=== PATIENT | female | born 1975 | race African-American/Black ===

== ENCOUNTER 2020-12-15 08:11 | Outpatient (REF) | payer OTHER, SELFPAY ==
--- NOTE | ~2020-12-15 | MM_ITS ---
EXAMINATION: MM SCREENING DIGITAL BREAST TOMOSYNTHESIS, BILATERAL CLINICAL INFORMATION: Screening. Asymptomatic. Age 45. No prior breast imaging. Family history breast cancer, sister. The lifetime risk of breast cancer based on the Tyrer-Cuzick Model is 14%. COMPARISON: None (current study represents initial baseline exam). TECHNIQUE: Digital breast tomosynthesis is performed in both the craniocaudal and mediolateral oblique views along with computer-aided detection (CAD). Synthesized 2D images are generated from the tomosynthesis. FINDINGS: There are scattered areas of fibroglandular density (ACR BI-RADS breast composition Category b). There are no significant masses, abnormal calcifications, or other abnormalities. The axilla and skin contours are unremarkable. MM/MM tomosynthesis screening BI IMPRESSION: No mammographic evidence of malignancy. ASSESSMENT: BI-RADS 1: Negative RECOMMENDATION: Routine annual mammography screening. This patient's information was entered into a reminder system with a target due date for their next mammogram.
== END 2020-12-15 08:12 | disposition home or self-care (01) ==
LOC: HO.MAMMO 08:11
PROVIDERS: Visit Provider Internal Medicine
DX: Z12.31 Encounter for screening mammogram for malignant neoplasm of breast (principal)
CPT/HCPCS: 77063; 77067

== ENCOUNTER 2020-12-20 09:07 | Outpatient (REF) | payer OTHER, SELFPAY ==
--- NOTE | ~2020-12-20 | XR_ITS ---
EXAMINATION: XR CHEST CLINICAL INFORMATION: Chest pain COMPARISON: None TECHNIQUE: 2 views of the chest were obtained. FINDINGS: No significant abnormality is noted involving the heart, lungs, mediastinum, bony thorax or soft tissues. XR/XR chest 2V IMPRESSION: Unremarkable chest examination.
[2020-12-20 09:59] LABS: Glucose Urine UA NEG (NEG); Leukocyte Esterase Urine NEG (NEG); Nitrite Urine NEG (NEG); Specific Gravity - Urine >= 1.030 (1.005-1.025); Urine Blood TRACE (NEG); Urine Ketones NEG (NEG); Urine Protein NEG (NEG-TRACE)
[2020-12-20 10:04] LABS: Appearance Urine HAZY; Color Urine YELLOW
[2020-12-20 10:09] LABS: Hematocrit 40.6 % (37-47); Hemoglobin 13.1 g/dl (12.0-16.0); Mean Corpuscular HGB Conc 32.3 g/dl (31.0-35.0); Mean Corpuscular Hemoglobin 27.4 pg (27.0-33.0); Mean Corpuscular Volume 84.9 fL (80-98); Mean Platelet Volume 12.4 fL (9.4-12.3); Platelet Count 214 X10*3/uL (160-400); Red Blood Count 4.78 X10*6/uL (4.20-5.50); Red Cell Distribution Width 13.2 % (11.0-16.0)
[2020-12-20 10:27] LABS: Alanine Aminotransferase 14 U/L (0-31); Albumin Level 4.6 g/dL (3.5-5.0); Alkaline Phosphatase 57 U/L (39-117); Anion Gap 11 (12-20); Aspartate Amino Transferase 15 U/L (5-31); Bilirubin Direct 0.2 mg/dL (0.0-0.5); Bilirubin Total 0.5 mg/dL (0.0-1.0); Blood Urea Nitrogen 10 mg/dL (9-16); Carbon Dioxide 29 mmol/L (22-29); Chloride 107 mmol/L (96-108); Cholesterol 206 mg/dL; Estimated Glomerular Filt Rate > 60; Glucose Random 85 mg/dL (60-115); HDL Cholesterol 61 mg/dL; LDL Cholesterol Calculated 132 mg/dl; Potassium 4.1 mmol/L (3.3-5.1); Sodium 143 mmol/L (135-145); Total Protein 6.9 g/dL (6.5-8.0); Triglycerides 66 mg/dL
[2020-12-20 10:47] LABS: Thyroid Stimulating Hormone 0.71 uIU/mL (0.32-4.0)
[2020-12-20 10:52] LABS: Bacteria Urine 1+ /LPF; Mucus Urine TRACE /LPF; RBC Urine 0-2 /HPF (0); Squamous Epithelial Cell Urine 1+ /LPF; WBC Urine 0-2 /HPF (0-4)
[2020-12-25 11:21] LABS: Vitamin D 25-OH, D2 <4 ng/mL; Vitamin D 25-OH, D3 6 ng/mL; Vitamin D 25-OH, Total 6 ng/mL (30-100)
== END 2020-12-20 09:08 | disposition home or self-care (01) ==
LOC: HO.LAB 09:07
PROVIDERS: PCP Internal Medicine; Visit Provider Internal Medicine
DX: R07.9 Chest pain, unspecified (principal)
CPT/HCPCS: 36415; 71046; 80048; 80061; 80076; 81001; 81003; 82306; 84443; 85027

== ENCOUNTER 2021-01-27 14:18 | Emergency (ER) | payer OTHER, SELFPAY ==
[2021-01-27 14:19] VITALS: BP 158/90; PULSE 99; RESP 16; TEMP 36.7; BMI 21.0
--- NOTE | 2021-01-27 15:51 | ECG_ITS ---
Test Reason : HEADACHE Blood Pressure : / mmHG Vent. Rate : 062 BPM Atrial Rate : 062 BPM P-R Int : 120 ms QRS Dur : 078 ms QT Int : 416 ms P-R-T Axes : 025 046 057 degrees QTc Int : 422 ms Normal sinus rhythm Normal ECG When compared with ECG of 08-JAN-2014 12:33, No significant change was found Referred By: Nataly Greco Electronically Signed By:Rupesh Arias
--- NOTE | 2021-01-27 16:08 | ED.GENADULT ---
HPI - General Adult General Chief complaint: General Medical Stated complaint: headache,dizzyness, blurred vision Time Seen by Provider: 01/27/21 15:24 Source: patient Mode of arrival: ambulatory Limitations: no limitations History of Present Illness HPI narrative: 45 yo female with past medical history of anxiety here with complaints of right sided [place], right eye blurry vision, nausea, dizziness since 4pm yesterday. No neck pain, back pain, weakness, numbness/tingling. No h/o migraines. Has not tried any OTC medications. Also c/o intermittent chest tightness for months seen by PCP and thought to be anxiety, has prn ativan which helps symptoms. Also c/o back pain, abdominal cramping, generalized malaise, NORMAN/wheezing s/p receiving J&J vaccine 7 days ago. Related Data Previous Rx's Medication Instructions Recorded clonazepam 0.5 mg tablet 0.5 mg PO DAILY PRN #15 tab 01/03/21 cholecalciferol (vitamin D3) 1,250 1,250 mcg PO QWEEK #14 cap 01/04/21 mcg (50,000 unit) capsule [id number]-klerpqcuvpqud-rwty 1 cap PO Q6H PRN #10 cap 01/27/21 [Fioricet] Allergies Allergy/AdvReac Type Severity Reaction Status Date / Time No Known Allergies Allergy Verified 01/21/21 14:29 [No Known Allergies*] Review of Systems Review of Systems: Yes all other systems are reviewed and are negative Constitutional: Constitutional: Reports no additional constitutional complaints, Denies body ache(s), Denies chills, Denies fever(s), Reports headache(s) and Denies weakness Eyes: Eyes: Reports no additional eye complaints, Reports blurry vision, Denies change in vision and Reports photophobia ENT: Reports system reviewed and no additional complaints, except as documented, Denies dizziness, Reports headache(s), Denies nasal congestion, Denies nasal discharge and Denies neck pain Cardiovascular: Cardiovascular: Reports no additional cardiovascular complaints, Reports chest pain, Denies leg edema, Denies dyspnea and Reports dyspnea on exertion Respiratory: Respiratory: Reports no additional respiratory complaints, Denies cough, Denies dyspnea and Reports dyspnea on exertion Gastrointestinal: Gastrointestinal: Reports no additional gastrointestinal complaints, Reports abdominal pain, Denies diarrhea, Denies nausea and Denies vomiting Genitourinary: Genitourinary: Reports no additional female genitourinary complaints and Denies urinary incontinence Musculoskeletal: Musculoskeletal: Reports no additional musculoskeletal complaints, Reports back pain, Denies arthralgias, Denies joint swelling, Denies neck pain, Denies numbness and Denies tingling Integumentary/Breasts: Skin/Breast: Reports system reviewed and no additional complaints, except as docu and Denies rash Neurologic: Reports system reviewed and no additional complaints, except as documented, Denies Abnormal speech present, Denies dizziness, Reports headache(s), Denies numbness, Denies tingling and Denies weakness PMFSH Past Medical History Attestation statement: The following information was validated with the patient. Source: old records reviewed and nursing notes reviewed Medical History Chest pain Surgical History History of tonsillectomy Family History Family History Father No problems noted. Mother No problems noted. Social History Social History Alcohol intake: current Alcohol intake frequency: holidays/special occasions only Smoking Status: Former smoker Tobacco Type: Cigarette Advance Directives: Yes Advance Directives Information Provided: No Advance Directives on File: No Physical Exam Vital Signs: Vital Signs: Last Vital Signs Temp 98.0 F 01/27/21 14:19 Pulse 78 01/27/21 20:08 Resp 13 01/27/21 20:08 BP 127/52 L 01/27/21 20:08 Body Mass Index 21.0 Const: General: cooperative, healthy appearing, comfortable and anxious Orientation/consciousness: patient oriented x3 Limitations: no limitations HENMT: Head: Yes normal to inspection Ears: hearing grossly normal bilaterally, TM's normal bilaterally, TM normal on the right and TM normal on the left General nose exam: Normal external nose present Face and sinus: Yes normal facial exam Mouth: Normal oral and palatal mucosa present Throat: Yes posterior oropharynx normal and Yes tonsils normal Eyes: Other: IOP right 20, IOP left 18 General: appearance normal, both eyes and all related structures Alignment and Position: alignment normal Periorbital: periorbital findings normal Eyelids: Yes eyelids normal Conjunctivae: conjunctivae normal Corneas: corneas normal Pupils: Equal, round and reactive pupils present EOM: EOMs intact bilaterally Direct Ophthalmoscopy: normal light reflex, no papilledema, fundi normal bilaterally, anterior chamber normal and photophobia Neck: Neck: Yes normal visual inspection, Yes full ROM, Yes no lymphadenopathy and Yes no meningeal signs Chest: Chest palpation & inspection: normal palpation of entire chest wall (central chest tender to palp) Resp: Effort & Inspection: normal respiratory effort Auscultation: clear to auscultation bilaterally Cardio: Rate: regular rate Rhythm: regular rhythm Peripheral pulses: Peripheral pulses 2+ throughout GI: Inspection: Yes normal to inspection Palpation (GI): Soft to palpation and nontender Auscultation: normal bowel sounds Back/Spine/Pelvis: Thoracic/Lumbar Spine: thoracic and lumbar spine normal to inspection Skin: General skin exam: no rashes or lesions noted Neuro: General: patient oriented x3, no meningeal signs, no focal motor deficits and normal sensation to monofilament Cranial nerves: Yes CN's II-XII intact bilaterally, Yes Equal, round and reactive pupils present, Yes Bilaterally intact EOM present, Yes Nystagmus not present, Yes Normal facial strength present and Yes Midline tongue present Cognition (Neuro): normal cognition Speech: No Abnormal speech present Gait exam (Neuro): Normal gait present Motor exam (neuro): 5/5 motor strength present throughout Sensory Exam: Normal double simultaneous stimulation for sensation Coordination: ljitnu-wt-[id number] test normal and inzi-gn-cybo test normal Extrem: General: Yes normal to inspection, Yes no pedal edema and Yes no calf tenderness Course Course Course Narrative: 45 yo female here with right sided [place], photophobia, blurry vision, nausea since 4pm yesterday. Normal neuro exam with exception of some blurry vision from right eye. Likely migraine. Will need IV for NSB, reglan, benadryl, visual acuity. If no improvement will need imaging. Also c/o constellation of symptoms s/p receiving J&J vaccine 7 days ago such as chest tightness, NORMAN, wheezing, back pain, abdominal pain. No focal findings on exam. Will check labs, EKG. 1800-Labs are unremarkable. EKG shows no ischemic changes. [place] and vision improving. Will give second L NS, fiorcet and re-assess. 1999-ALL symptoms resolved and patient tells me her vision is back to normal and she is feeling well. Likely migraine. Additionally, ?side effects from vaccine or anxiety. Patient agrees she has been very anxious after watching the news about potential side effects from the J&J vaccines. Reviewed worrisome signs/symptoms with patient and when to return to the ED. Comfortable with discharge home. Medical Decision Making MDM Narrative Medical decision making narrative: Less likely SAH with gradual onset, improving symptoms here and no neurological deficits or findings. Less likely CVT with improving symptoms here, no focal deficits. Medical Records Medical records reviewed: Yes I reviewed the patient's medical records. Lab Data Lab results reviewed: Yes I reviewed the patient's lab results. Result diagrams: 01/27/21 16:15 01/27/21 16:15 Labs: Lab Results 01/27/21 01/27/21 01/27/21 Range/Units 16:15 16:15 17:07 WBC 8.0 (4.8-10.8) X10*3/uL RBC 4.84 (4.20-5.50) X10*6/uL Hgb 13.1 (12.0-16.0) g/dl Hct 40.1 (37-47) % MCV 82.9 (80-98) fL MCH 27.1 (27.0-33.0) pg MCHC 32.7 (31.0-35.0) g/dl RDW 13.1 (11.0-16.0) % Plt Count 252 (160-400) X10*3/uL MPV 11.6 (9.4-12.3) fL Immature Gran % (Auto) 0.3 (0.0-0.4) % Neut % (Auto) 62.5 (45-73) % Lymph % (Auto) 29.6 (20-40) % [place] % (Auto) 5.7 (2-11) % Eos % (Auto) 1.3 (0-4) % Baso % (Auto) 0.6 (0-2) % Lymph # (Auto) 2.4 (1.2-4.9) X10*3/uL [place] # (Auto) 0.5 (0.1-1.2) X10*3/uL Eos # (Auto) 0.1 (0.0-0.4) X10*3/uL Baso # (Auto) 0.1 (0.0-0.2) X10*3/uL Abs Immat Gran (auto) 0.02 (0.00-0.03) X10*3/uL Absolute Neuts (auto) 5.0 (2.0-8.3) X10*3/uL Absolute Nucleated RBC 0.000 (0.0-0.012) X10*3/uL Nucleated RBC % (auto) 0.0 (0.0-0.2) /100WBC Sodium 139 (135-145) mmol/L Potassium 3.9 (3.3-5.1) mmol/L Chloride 105 (96-108) mmol/L Carbon Dioxide 24 (22-29) mmol/L Anion Gap 14 (12-20) BUN 9 (9-16) mg/dL Creatinine 0.69 (0.5-1.4) mg/dL Estim Creat Clear Calc 83.1 Estimated GFR > 60 Random Glucose 86 (60-115) mg/dL Calcium 9.0 (8.4-10.2) mg/dL Magnesium 2.2 (1.6-2.6) mg/dL Total Bilirubin 0.7 (0.0-1.0) mg/dL Direct Bilirubin 0.3 (0.0-0.5) mg/dL AST 15 (5-31) U/L ALT 17 (0-31) U/L Alkaline Phosphatase 62 (39-117) U/L Total Protein 7.1 (6.5-8.0) g/dL Albumin 4.6 (3.5-5.0) g/dL Urine Color YELLOW Urine Appearance CLEAR Urine pH 6.0 (5.0-8.0) Ur Specific [place] 1.015 (1.005-1.025) Urine Protein NEG (NEG-TRACE) MG/DL Urine Glucose (UA) NEG (NEG) MG/DL Urine Ketones 15 (NEG) MG/DL Urine Blood NEG (NEG) Urine Nitrite NEG (NEG) Ur Leukocyte Esterase NEG (NEG) Urine Test (NEGATIVE) 01/27/21 Range/Units 17:07 WBC (4.8-10.8) X10*3/uL RBC (4.20-5.50) X10*6/uL Hgb (12.0-16.0) g/dl Hct (37-47) % MCV (80-98) fL MCH (27.0-33.0) pg MCHC (31.0-35.0) g/dl RDW (11.0-16.0) % Plt Count (160-400) X10*3/uL MPV (9.4-12.3) fL Immature Gran % (Auto) (0.0-0.4) % Neut % (Auto) (45-73) % Lymph % (Auto) (20-40) % [place] % (Auto) (2-11) % Eos % (Auto) (0-4) % Baso % (Auto) (0-2) % Lymph # (Auto) (1.2-4.9) X10*3/uL [place] # (Auto) (0.1-1.2) X10*3/uL Eos # (Auto) (0.0-0.4) X10*3/uL Baso # (Auto) (0.0-0.2) X10*3/uL Abs Immat Gran (auto) (0.00-0.03) X10*3/uL Absolute Neuts (auto) (2.0-8.3) X10*3/uL Absolute Nucleated RBC (0.0-0.012) X10*3/uL Nucleated RBC % (auto) (0.0-0.2) /100WBC Sodium (135-145) mmol/L Potassium (3.3-5.1) mmol/L Chloride (96-108) mmol/L Carbon Dioxide (22-29) mmol/L Anion Gap (12-20) BUN (9-16) mg/dL Creatinine (0.5-1.4) mg/dL Estim Creat Clear Calc Estimated GFR Random Glucose (60-115) mg/dL Calcium (8.4-10.2) mg/dL Magnesium (1.6-2.6) mg/dL Total Bilirubin (0.0-1.0) mg/dL Direct Bilirubin (0.0-0.5) mg/dL AST (5-31) U/L ALT (0-31) U/L Alkaline Phosphatase (39-117) U/L Total Protein (6.5-8.0) g/dL Albumin (3.5-5.0) g/dL Urine Color Urine Appearance Urine pH (5.0-8.0) Ur Specific [place] (1.005-1.025) Urine Protein (NEG-TRACE) MG/DL Urine Glucose (UA) (NEG) MG/DL Urine Ketones (NEG) MG/DL Urine Blood (NEG) Urine Nitrite (NEG) Ur Leukocyte Esterase (NEG) Urine Test NEGATIVE (NEGATIVE) ECG Data Attestation: I personally reviewed and interpreted this ECG as follows: Interpretation: NSR with rate 62, normal pr, normal qrs, normal qtc Discharge Plan Discharge Clinical Impression: Migraine, Chest pain Patient Disposition: Home, Self-Care Instructions: Migraine Headache (ED), Chest Wall Pain (ED) Additional Instructions: Avoid migraine triggers (look up foods on internet). drink plenty of water and get plenty of rest Prescriptions: New tcthngntit-cblvdotwyymhu-kusc [Fioricet] 50-300-40 mg capsule 1 cap PO Q6H PRN (Reason: pain) Qty: 10 RF: 0 No Action cholecalciferol (vitamin D3) 1,250 mcg (50,000 unit) capsule 1,250 mcg PO QWEEK Qty: 14 RF: 1 clonazepam [Klonopin] 0.5 mg tablet 0.5 mg PO DAILY PRN (Reason: anxiety) Qty: 15 RF: 0 Referrals: Umer Holland MD [Primary Care Provider] - 2 days
[2021-01-27 16:23] LABS: MANUAL DIFF FLAG NO
[2021-01-27 16:25] LABS: Basophils Absolute Auto 0.1 X10*3/uL (0.0-0.2); Basophils Percent Auto 0.6 % (0-2); Eosinophils Absolute Auto 0.1 X10*3/uL (0.0-0.4); Eosinophils Percent Auto 1.3 % (0-4); Hematocrit 40.1 % (37-47); Hemoglobin 13.1 g/dl (12.0-16.0); Imm Gran Abs Auto 0.02 X10*3/uL (0.00-0.03); Imm Gran Pct Auto 0.3 % (0.0-0.4); Lymphocytes Absolute Auto 2.4 X10*3/uL (1.2-4.9); Lymphocytes Percent Auto 29.6 % (20-40); Mean Corpuscular HGB Conc 32.7 g/dl (31.0-35.0); Mean Corpuscular Hemoglobin 27.1 pg (27.0-33.0); Mean Corpuscular Volume 82.9 fL (80-98); Mean Platelet Volume 11.6 fL (9.4-12.3); Monocytes Absolute Auto 0.5 X10*3/uL (0.1-1.2); Monocytes Percent Auto 5.7 % (2-11); Neutrophils Percent Auto 62.5 % (45-73); Platelet Count 252 X10*3/uL (160-400); Red Blood Count 4.84 X10*6/uL (4.20-5.50); Red Cell Distribution Width 13.1 % (11.0-16.0)
[2021-01-27 16:51] LABS: Alanine Aminotransferase 17 U/L (0-31); Albumin Level 4.6 g/dL (3.5-5.0); Alkaline Phosphatase 62 U/L (39-117); Anion Gap 14 (12-20); Aspartate Amino Transferase 15 U/L (5-31); Bilirubin Direct 0.3 mg/dL (0.0-0.5); Bilirubin Total 0.7 mg/dL (0.0-1.0); Blood Urea Nitrogen 9 mg/dL (9-16); Carbon Dioxide 24 mmol/L (22-29); Chloride 105 mmol/L (96-108); Creatinine Clr Calc Pharmacy 83.1; Estimated Glomerular Filt Rate > 60; Glucose Random 86 mg/dL (60-115); Magnesium 2.2 mg/dL (1.6-2.6); Potassium 3.9 mmol/L (3.3-5.1); Sodium 139 mmol/L (135-145); Total Protein 7.1 g/dL (6.5-8.0)
[2021-01-27] MEDS: Metoclopramide HCl 10 MG/2 ML VIAL IVPUSH (17:04)
[2021-01-27] MEDS: 0.9 % Sodium Chloride 1,000 ML 999 ML IV ×2 (17:04→18:08)
[2021-01-27] MEDS: diphenhydrAMINE HCL 50 MG/ML VIAL 25 MG IVPUSH (17:04)
--- NOTE | 2021-01-27 17:08 | PC.NURSE ---
Pt given benedryl, reglan, and ivf. Pt senthil anxious but verbal reassurance given with good effect.
[2021-01-27 17:33] LABS: Glucose Urine UA NEG (NEG); Leukocyte Esterase Urine NEG (NEG); Nitrite Urine NEG (NEG); Specific Gravity - Urine 1.015 (1.005-1.025); Urine Blood NEG (NEG); Urine Ketones 15 MG/DL (NEG); Urine Protein NEG (NEG-TRACE)
[2021-01-27 17:39] LABS: Appearance Urine CLEAR; Color Urine YELLOW
[2021-01-27 17:47] LABS: UPreg QC Valid YES; Urine Pregnancy NEGATIVE (NEGATIVE)
[2021-01-27 18:00] VITALS: BP 123/77; PULSE 71; RESP 16
[2021-01-27] MEDS: Butalb/Acetamin/Caff 50/325/40 TABLET 2 TAB PO (18:08)
--- NOTE | 2021-01-27 18:10 | PC.NURSE ---
Pt resting in bed with eyes closed.Additional IVF and medications given for headache.
[2021-01-27 20:08] VITALS: BP 127/52; PULSE 78; RESP 13
== END 2021-01-27 20:30 | disposition home or self-care (01) ==
PROVIDERS: Nurse Practitioner Family; Emergency Provider Emergency Medicine Emergency Medical Services; PCP Internal Medicine
DX: G43.909 Migraine, unspecified, not intractable, without status migrainosus (principal); R07.9 Chest pain, unspecified; F41.9 Anxiety disorder, unspecified; Z79.899 Other long term (current) drug therapy; Z87.891 Personal history of nicotine dependence
CPT/HCPCS: 36415; 80048; 80076; 81003; 81025; 83735; 85025; 93005; 96361; 96374; 96375; 99284; J1200; J2765

== ENCOUNTER 2021-02-09 09:34 | Outpatient (REF) | payer OTHER, SELFPAY ==
[2021-02-09 11:51] LABS: Glucose Urine UA NEG (NEG); Leukocyte Esterase Urine NEG (NEG); Nitrite Urine NEG (NEG); PH 5.5 (5.0-8.0); Specific Gravity - Urine >= 1.030 (1.005-1.025); Urine Blood NEG (NEG); Urine Ketones NEG (NEG); Urine Protein NEG (NEG-TRACE)
[2021-02-09 11:52] LABS: Appearance Urine CLEAR; Color Urine YELLOW
[2021-02-09 16:24] LABS: CT PCR NOT DETECTED (Not Detect.); NG PCR NOT DETECTED (Not Detect.)
[2021-02-10 07:59] LABS: Syphilis Screen Nonreactive (Nonreactive)
[2021-02-10 08:51] LABS: HBc Num1 0.02 S/CO (0.00-0.79); HIV AB/AG Nonreactive (Nonreactive); HIV Num 1 0.07 S/CO (0.00-0.99); Hepatitis B Core Antibody Nonreactive (Nonreactive)
[2021-02-10 08:59] LABS: ~HepC Num1 0.18 S/CO (0.00-0.79); ~Hepatitis C Antibody Nonreactive (Nonreactive)
[2021-02-14 15:17] LABS: HPV mRNA E6/E7 rflx Not Detected (Not Detected)
== END 2021-02-09 09:35 | disposition home or self-care (01) ==
LOC: HO.LAB 09:34
PROVIDERS: PCP Internal Medicine; Visit Provider Advanced Practice Midwife
DX: Z01.419 Encounter for gynecological examination (general) (routine) without abnormal findings (principal); Z11.51 Encounter for screening for human papillomavirus (HPV); R07.9 Chest pain, unspecified; Z20.2 Contact with and (suspected) exposure to infections with a predominantly sexual mode of transmission; Z80.3 Family history of malignant neoplasm of breast
CPT/HCPCS: 36415; 81003; 86704; 86780; 86803; 87389; 87491; 87591; 87624; 88142

== ENCOUNTER → 2021-03-28 13:04 | Outpatient (BNVA) | payer OTHER, SELFPAY | PROVIDERS: PCP Internal Medicine; Visit Provider Advanced Practice Midwife | DX: Z30.017 Encounter for initial prescription of implantable subdermal contraceptive (principal) | CPT/HCPCS: 11981; 81025 ==

== ENCOUNTER 2021-04-25 08:44 | Outpatient (REF) | payer OTHER, SELFPAY ==
[2021-04-25 11:05] LABS: HBc Num1 0.13 S/CO (0.00-0.79); Hepatitis B Core Antibody Nonreactive (Nonreactive)
[2021-04-25 11:06] LABS: HIV AB/AG Nonreactive (Nonreactive); HIV Num 1 0.14 S/CO (0.00-0.99); ~HepC Num1 0.19 S/CO (0.00-0.79); ~Hepatitis C Antibody Nonreactive (Nonreactive)
[2021-04-26 06:42] LABS: Syphilis Screen Nonreactive (Nonreactive)
== END 2021-04-25 08:45 | disposition home or self-care (01) ==
LOC: HO.LAB 08:44
PROVIDERS: PCP Internal Medicine; Visit Provider Advanced Practice Midwife
DX: N93.9 Abnormal uterine and vaginal bleeding, unspecified (principal); Z20.2 Contact with and (suspected) exposure to infections with a predominantly sexual mode of transmission; Z30.46 Encounter for surveillance of implantable subdermal contraceptive
CPT/HCPCS: 36415; 86704; 86780; 86803; 87389; 99212

== ENCOUNTER 2021-12-29 08:45 | Outpatient (REF) | payer OTHER, SELFPAY ==
--- NOTE | ~2021-12-29 | MM_ITS ---
EXAMINATION: MM SCREENING DIGITAL BREAST TOMOSYNTHESIS, BILATERAL CLINICAL INFORMATION: Screening. Asymptomatic. The lifetime risk of breast cancer based on the Tyrer-Cuzick Model is 14.2%. COMPARISON: Mammography: December 15, 2020 TECHNIQUE: Digital breast tomosynthesis is performed in both the craniocaudal and mediolateral oblique views along with computer-aided detection (CAD). Synthesized 2D images are generated from the tomosynthesis. FINDINGS: The breasts are heterogeneously dense, which may obscure small masses (ACR BI-RADS breast composition Category c). There are no significant masses, abnormal calcifications, or other abnormalities. MM/MM tomosynthesis screening BI IMPRESSION: There are no significant changes from prior study. ASSESSMENT: BI-RADS 1: Negative RECOMMENDATION: Routine annual mammography screening. This patient's information was entered into a reminder system with a target due date for their next mammogram.
== END 2021-12-29 08:46 | disposition home or self-care (01) ==
LOC: HO.MAMMO 08:45
PROVIDERS: PCP Internal Medicine; Visit Provider Internal Medicine
DX: Z12.31 Encounter for screening mammogram for malignant neoplasm of breast (principal)
CPT/HCPCS: 77063; 77067

== ENCOUNTER 2022-03-15 08:34 | Outpatient (REF) | payer OTHER, SELFPAY ==
[2022-03-15 14:34] LABS: CT PCR NOT DETECTED (Not Detect.); NG PCR NOT DETECTED (Not Detect.)
[2022-03-16 08:47] LABS: BV Int Neg Control Negative (Negative); BV Int Pos Control Positive (Positive)
== END 2022-03-15 08:35 | disposition home or self-care (01) ==
LOC: HO.LAB 08:34
PROVIDERS: Visit Provider Advanced Practice Midwife
DX: Z01.411 Encounter for gynecological examination (general) (routine) with abnormal findings (principal); N92.1 Excessive and frequent menstruation with irregular cycle; Z20.2 Contact with and (suspected) exposure to infections with a predominantly sexual mode of transmission; Z97.5 Presence of (intrauterine) contraceptive device
CPT/HCPCS: 87480; 87491; 87510; 87591; 87660

== ENCOUNTER 2023-02-13 09:52 | Outpatient (REF) | payer OTHER, SELFPAY ==
--- NOTE | ~2023-02-13 | MM_ITS ---
EXAMINATION: MM SCREENING DIGITAL BREAST TOMOSYNTHESIS, BILATERAL CLINICAL INFORMATION: Screening. Asymptomatic. The lifetime risk of breast cancer based on the Tyrer-Cuzick Model is 14.4%. COMPARISON: Mammography: 12/29/2021 and 12/15/2020. TECHNIQUE: Digital breast tomosynthesis is performed in both the craniocaudal and mediolateral oblique views along with computer-aided detection (CAD). Synthesized 2D images are generated from the tomosynthesis. FINDINGS: The breasts are extremely dense, which lowers the sensitivity of mammography (ACR BI-RADS breast composition Category d). There is a stable appearance of the left breast. About the medial aspect of the right breast on craniocaudal view approximately 4 cm from the nipple there is a partially circumscribed 8 x 6 mm density for which spot compression view is recommended. I do not definitely see a correlate on mediolateral oblique image however there is dense parenchyma seen in the superior aspect of the right breast where the density could be obscured. About the lateral aspect of the right breast on craniocaudal view there is a new-appearing density which may represent superimposed tissue lying approximately 5 cm from the nipple. Spot compression views of both regions are recommended. MM/MM tomosynthesis screening BI IMPRESSION: 2 right breast densities for further evaluation as described. ASSESSMENT: BI-RADS 0: Incomplete - Need Additional Imaging Evaluation RECOMMENDATION: 1. Additional views of the right breast. 2. Targeted ultrasound if warranted after review of the additional views. 3. Radiology department staff will contact the patient for additional imaging. This patient's information was entered into a reminder system with a target due date for their next mammogram.
[2023-02-13 10:58] LABS: Hematocrit 38.8 % (37.0-47.0); Hemoglobin 12.6 g/dl (12.0-16.0); Mean Corpuscular HGB Conc 32.5 g/dl (31.0-35.0); Mean Corpuscular Hemoglobin 27.4 pg (27.0-33.0); Mean Corpuscular Volume 84.3 fL (80.0-98.0); Mean Platelet Volume 11.4 fL (9.4-12.3); Platelet Count 247 X10*3/uL (160-400); Red Cell Distribution Width 13.2 % (11.0-16.0); White Blood Count 6.1 X10*3/uL (4.8-10.8)
[2023-02-13 11:59] LABS: Alanine Aminotransferase 24 U/L (0-31); Albumin Level 4.2 g/dL (3.5-5.0); Alkaline Phosphatase 57 U/L (39-117); Anion Gap 11 (12-20); Aspartate Amino Transferase 15 U/L (5-31); Bilirubin Direct 0.1 mg/dL (0.0-0.5); Bilirubin Total 0.5 mg/dL (0.0-1.0); Blood Urea Nitrogen 7 mg/dL (9-16); Calcium 9.2 mg/dL (8.4-10.2); Carbon Dioxide 28 mmol/L (22-29); Chloride 105 mmol/L (96-108); Cholesterol 231 mg/dL; Estimated Glomerular Filt Rate > 60; Glucose Random 82 mg/dL (60-115); HDL Cholesterol 56 mg/dL; LDL Cholesterol Calculated 151 mg/dl; Potassium 4.3 mmol/L (3.3-5.1); Sodium 140 mmol/L (135-145); Total Protein 6.4 g/dL (6.5-8.0); Triglycerides 124 mg/dL
[2023-02-13 12:22] LABS: Thyroid Stimulating Hormone 0.75 uIU/mL (0.32-4.0)
[2023-02-18 15:13] LABS: Vitamin D 25-OH, D2 <4 ng/mL; Vitamin D 25-OH, D3 34 ng/mL; Vitamin D 25-OH, Total 34 ng/mL (30-100)
== END 2023-02-13 09:53 | disposition home or self-care (01) ==
LOC: HO.MAMMO 09:52
PROVIDERS: PCP Internal Medicine; Visit Provider Internal Medicine
DX: Z00.00 Encounter for general adult medical examination without abnormal findings (principal); F41.1 Generalized anxiety disorder; Z12.31 Encounter for screening mammogram for malignant neoplasm of breast
CPT/HCPCS: 36415; 77063; 77067; 80048; 80061; 80076; 82306; 84443; 85027

== ENCOUNTER 2023-03-14 12:54 | Outpatient (REF) | payer OTHER, SELFPAY ==
--- NOTE | ~2023-03-14 | MM_ITS ---
EXAMINATION: MM DIAGNOSTIC DIGITAL BREAST TOMOSYNTHESIS, RIGHT US DIAGNOSTIC ULTRASOUND BREAST, RIGHT CLINICAL INFORMATION: Recall from screening for question of asymmetric densities anterior medial and anterior lateral right breast. COMPARISON: Prior mammography exams, including most recent 02/13/2023. TECHNIQUE: Digital breast tomosynthesis is performed. 2D images are generated from the tomosynthesis. The following views are obtained: Spot CC x2, standard ML. Ultrasound right breast is targeted to the medial breast 2:00 through 5:00 position and lateral breast 8:00 through 10:00 position, respectively. Grayscale imaging and color Doppler are performed without and with harmonics FINDINGS: The breasts are heterogeneously dense, which may obscure small masses (ACR BI-RADS breast composition Category c). The additional views show no mass or architectural abnormality. No developing density. Ultrasound demonstrates no solid mass or architectural abnormality. No focal duct ectasia. There is incidental simple cyst 3:00 position 5 cm from nipple measuring 6 x 3 mm. The lateral side also has a cyst mid outer breast 9:00 position measuring 7 x 4 mm. No peripheral or internal color flow. There is increased through-transmission of sound at real-time imaging. Results are discussed with the patient at time of visit. There is no suspicious finding on additional imaging. As a precaution, short interval follow-up right mammography will be requested to exclude remote possibility of an occult developing density. MM/MM tomosynthesis added views R IMPRESSION: -Additional views show no mammographic evidence of malignancy. -Small cysts under 1 cm medial breast and lateral breast. No solid mass or architectural abnormality. ASSESSMENT: BI-RADS 2: Benign RECOMMENDATION: Diagnostic right mammography in 6 months. This patient's information was entered into a reminder system with a target due date for their next mammogram.
== END 2023-03-14 12:55 | disposition home or self-care (01) ==
LOC: HO.MAMMO 12:54
PROVIDERS: PCP Internal Medicine; Visit Provider Internal Medicine
DX: R92.2 Inconclusive mammogram (principal)
CPT/HCPCS: 76642; 77061; 77065

== ENCOUNTER 2023-03-21 09:20 | Outpatient (REF) | payer OTHER, SELFPAY ==
[2023-03-21 15:26] LABS: CT PCR NOT DETECTED (Not Detect.); NG PCR NOT DETECTED (Not Detect.)
[2023-03-22 11:12] LABS: BV Int Neg Control Negative (Negative); BV Int Pos Control Positive (Positive)
== END 2023-03-21 09:21 | disposition home or self-care (01) ==
LOC: HO.LAB 09:20
PROVIDERS: PCP Internal Medicine; Visit Provider Advanced Practice Midwife
DX: N92.1 Excessive and frequent menstruation with irregular cycle (principal); Z97.5 Presence of (intrauterine) contraceptive device
CPT/HCPCS: 0353U; 87480; 87510; 87660

== ENCOUNTER 2023-03-21 09:47 | Outpatient (REF) | payer OTHER, SELFPAY ==
[2023-03-26 22:08] LABS: HPV mRNA E6/E7 rflx Not Detected (Not Detected)
== END 2023-03-21 09:48 | disposition home or self-care (01) ==
LOC: HO.LNP 09:47
PROVIDERS: Visit Provider Advanced Practice Midwife
DX: Z01.419 Encounter for gynecological examination (general) (routine) without abnormal findings (principal); N92.1 Excessive and frequent menstruation with irregular cycle; Z97.5 Presence of (intrauterine) contraceptive device
CPT/HCPCS: 87624; 88142

== ENCOUNTER 2023-03-28 12:54 | Outpatient (REF) | payer OTHER, SELFPAY ==
--- NOTE | ~2023-03-28 | US_ITS ---
EXAMINATION: US PELVIS COMPLETE CLINICAL INFORMATION: Extensive and frequent menstruation COMPARISON: None TECHNIQUE: Transabdominal and transvaginal imaging was performed. FINDINGS: The uterus is of normal size and echogenicity measuring 7.9 x 4.3 x 5.6 cm. A regular homogeneous endometrium is identified measuring 0.3 cm. Both ovaries are of appearance and echogenicity. The right measures 3.1 x 2.4 x 2.7 cm for a volume of 2.5 mL. The left measures 2.0 x 1.4 x 1.5 cm for a volume of 2.2 mL. There is no pelvic free fluid. US/US pelvic and transvaginal IMPRESSION: Unremarkable pelvic ultrasound.
== END 2023-03-28 12:55 | disposition home or self-care (01) ==
LOC: HO.US 12:54
PROVIDERS: Visit Provider Advanced Practice Midwife
DX: N92.1 Excessive and frequent menstruation with irregular cycle (principal); Z97.5 Presence of (intrauterine) contraceptive device
CPT/HCPCS: 76830; 76856

== ENCOUNTER 2023-04-26 09:57 | Outpatient (AMB) | payer OTHER, SELFPAY ==
--- NOTE | 2023-04-26 10:02 | A.OFFVIS_ITS ---
Intake Vital Signs 04/26/23 10:20 Height 5 ft 2 in Weight 120 lb BMI 21.9 BP 110/62 Intake Visit Reasons: US follow up/Nexplanon Removal 45 mins Intake Note: The patient agreed to use of a medical/surgery registered nurse during this encounter. Scribed for DAVION Russell by Shadia Guzman medical/surgery registered nurse, on 04/26/2023 at 10:[address] [employer] Foreman Required: No Information Interpreted: non-clinical & clinical Medical Data Analyst: Medical Data Analyst Present (Sarita) Allergies maple trees Allergy (Unknown, Uncoded 04/26/23 10:21) Unknown Post menopausal: No HPI HPI Comments History of Present Illness Details She presents to discuss test results secondary to irregular bleeding. Currently has Nexplanon for BC. She is also here to have it removed today. She desires to take a break from hormones and not start a new BC today. Not currently sexually active. 03/28/23 IMPRESSION: Unremarkable pelvic ultrasound. PFS Medical History Chest pain COVID-19 vaccine administered Ectopic FH: breast cancer in first degree relative Migraine with aura PTSD (post-traumatic stress disorder) Surgical History H/O unilateral salpingectomy History of loop electrical excision procedure (LEEP) History of tonsillectomy Family History Father No problems noted. Mother No problems noted. Sister Breast cancer, Onset Age: 38 Social History Housing: House Alcohol intake: current Alcohol intake frequency: holidays/special occasions only Patient Tobacco Use Status: Former Tobacco user e-Cigarette/Vaping Use: Never Used Second Hand Smoke Exposure: No service: No Current occupational status: employed Current occupation: Medical billing Sexual orientation: Straight/Heterosexual Gender identity: Female Cognitive needs: No Hearing needs: No Vision needs: Yes (glasses) Female Reproductive History Menstrual Age of Menarche: 15 control method: implanted Date of last pap smear: 03/25/23 (negative) Review of Systems Const All systems reviewed & are unremarkable except as noted in HPI and below Reports abnormal menses Physical Exam Vital Signs: Last Vital Signs BP 110/62 04/26/23 10:20 BMI result Body Mass Index 21.9 Const General: cooperative, no acute distress, well developed and alert Extrem General: Yes normal to inspection Left upper extremity: normal to inspection and elbow/forearm (Nexplanon removed successfully) Office Procedures Contraception Insert/Removal Details Details: She was counseled and now consented as to the risks and benefits including: bleeding, pain, scarring, nerve damage and infection. Patient agrees to proceed with the procedure. The patient was placed in a supine position with her non dominant left hand resting under her head. The insertion site was located: 8-10cm from the medial epicondyle notch of the humerus, posterior to the sulcus, between the triceps and biceps muscle. The area of the previous implant was identified and the distal tip located. This area was cleansed with an alcohol prep and 3 ml of 1% Lidocaine on a 25 gauge needle and syringe was utilized for adequate anesthesia to the insertion site. After ascertaining adequate anesthesia, the area was prepped with Betadine solution. The skin over the distal tip was incised with a #11 blade scalpel and the capsule was located and entered freeing the implant from the canal. The implant was removed with a gentle tug using a mosquito clamp and removed intact. Direct pressure was applied to the insertion site for hemostasis, minimal bleeding was observed. Steri strips, Tegaderm covering, gauze pads, and Sary wrap dressing were secured with paper tape. The patient tolerated the procedure well and left the office in good condition. She was instructed to go to ER if she experiences any fever >100.4, flu-like symptoms, increased pain, swelling, redness or pus drainage from the insertion site. Instructed to leave steri-strips in place for 3-5 days and gauze and bandage for 24 hours to help prevent infection. 74836 - Removal Results AMB Test Urine AMB Test Urine Negative Last Edit by Sarita Pickett CMA on 10:25 Results Reviewed Results Reviewed: Laboratory Last Values [facility] Negative 04/26/23 10:25 Assessment & Plan Assessment & Plan (1) Nexplanon removal: Code(s): Z30.46 - Encounter for surveillance of implantable subdermal contraceptive Plan: Nexplanon removed without complication today. See procedure note. She can take Tylenol or ibuprofen for pain prn. Offered BC; she declines today. Reviewed normal spacing of menses, contact office with any bleeding that are less than 3 weeks apart or heavy or prolonged bleeding. Will monitor bleeding and contact office with any concerns. (2) Breakthrough bleeding on Nexplanon: Code(s): N92.1 - Excessive and frequent menstruation with irregular cycle; Z97.5 - Presence of (intrauterine) contraceptive device (3) Encounter to discuss test results: Code(s): Z71.2 - Person consulting for explanation of examination or test findings Orders: Orders AMB HCG Urine Test Today Z32.02 - Encounter for test, result negative Coding Level of Care Code Procedure Only Diagnoses Nexplanon removal Z30.46 Breakthrough bleeding on Nexplanon N92.1; Z97.5 Encounter to discuss test results Z71.2 CPT Codes Details - Contraception: 50675 - Removal ([id number])
[2023-04-26 10:20] VITALS: BP 110/62; BMI 21.9
== END 2023-04-26 11:30 | disposition home or self-care (01) ==
LOC: HO.HWS 09:57
PROVIDERS: PCP Internal Medicine; Visit Provider Advanced Practice Midwife
DX: Z32.02 Encounter for pregnancy test, result negative (principal); Z30.46 Encounter for surveillance of implantable subdermal contraceptive
CPT/HCPCS: 11982

== ENCOUNTER → 2023-04-26 09:57 | Outpatient (BNVA) | payer OTHER, SELFPAY | PROVIDERS: PCP Internal Medicine; Visit Provider Advanced Practice Midwife | DX: Z30.46 Encounter for surveillance of implantable subdermal contraceptive (principal); Z71.2 Person consulting for explanation of examination or test findings; N92.1 Excessive and frequent menstruation with irregular cycle | CPT/HCPCS: 11982; 81025 ==

== ENCOUNTER 2023-08-01 08:14 | Outpatient (AMB) | payer OTHER, SELFPAY ==
[2023-08-01 08:22] VITALS: BP 122/78; PULSE 64; O2SAT 98; BMI 21.9
--- NOTE | 2023-08-01 08:22 | MHC.PC.OV ---
Vital Signs 08/01/23 08:22 Height 5 ft 2 in Weight 120 lb BMI 21.9 BP 122/78 Blood Pressure Location Lt brachial Position Sitting Pulse 64 Pulse Source Pulse Oximeter Pulse Oximetry (%) 98 Oxygen Delivery Method Room Air Intake Visit Reasons: 6mth f/u Allergies maple trees Allergy (Unknown, Uncoded 08/01/23 08:58) Unknown Medication List - Last Reconciled 08/01/23 by Umer Holland MD citalopram (Celexa) 20 mg (2 x 10 mg) PO DAILY fluticasone propionate 50 mcg/actuation 1 intranasal DAILY lorazepam 0.5 mg PO BEDTIME PRN 30 days Tobacco use date assessed: 01/24/23 Dental Screening Dental Screen Date: 08/01/23 Did you have a dental visit in the last 12 months?: Yes Did you have a dental problem in the last 6 months where you did not have access to dental care?: No Was dental information given to patient?: Patient has dentist HPI 6mth f/u HPI Details 48-year-old female presents to the office to discuss her chronic medical conditions. Patient is doing well regarding her anxiety. She is able to work and do her activities of daily living. However she still feels low energy at times and is not able to go to the gym due to anxiety. She is compliant with her medications and not using lorazepam that often. She was informed last visit that her cholesterol levels are high. Patient is very reluctant to start statins. She would like to try the diet and exercise again. She is requesting a fasting blood work to get baseline lipid level. [facility] Medical History Pure hypercholesterolemia, unspecified FH: breast cancer in first degree relative COVID-19 vaccine administered Migraine with aura PTSD (post-traumatic stress disorder) Ectopic Chest pain Surgical History H/O unilateral salpingectomy History of loop electrical excision procedure (LEEP) History of tonsillectomy Family History Father No problems noted. Mother No problems noted. Sister Breast cancer, Onset Age: 38 Social History Housing: House Alcohol intake: current Alcohol intake frequency: holidays/special occasions only Patient Tobacco Use Status: Former Tobacco user Tobacco use type: Cigarette e-Cigarette/Vaping Use: Never Used Second Hand Smoke Exposure: No service: No Current occupational status: employed Current occupation: Medical billing Sexual orientation: Straight/Heterosexual Gender identity: Female Cognitive needs: No Hearing needs: No Vision needs: Yes (glasses) Female Reproductive History Menstrual Age of Menarche: 15 Questionnaire PHQ-9 Over the last 2 weeks, how often have you been bothered by any of the following problems? 1. Little interest or pleasure in doing things: several days 2. Feeling down, depressed, or hopeless: more than half the days 3. Trouble falling or staying asleep, or sleeping too much: several days 4. Feeling tired or having little energy: several days 5. Poor appetite or overeating: several days 6. Feeling bad about yourself - or that you are a failure or have let yourself or your family down: not at all 7. Trouble concentrating on things, such as reading the newspaper or watching television: several days 8. Moving or speaking so slowly that other people could have noticed. Or the opposite - being so fidgety or restless that you have been moving around a lot more than usual: not at all 9. Thoughts that you would be better off or of hurting yourself in some way: not at all Total score: 7 Source: Developed by Drs. Rene Riggins, Matt Flood and colleagues, with an educational dannielle from [employer]. Thrive Questionnaire Date Thrive assessed: 01/24/23 AUDIT C Alcohol Use Questionnaire (AUDIT-C) 1. How often do you have a drink containing alcohol?: Monthly or less 2. How many drinks containing alcohol do you have on a typical day when you are drinking?: 1 or 2 Total Score: 1 PAUL-7 AMB Questionnaire PAUL-7 Date PAUL - 7 assessed: 01/24/23 Source: Developed by Drs. Rene Riggins, Matt Flood and colleagues, with an educational dannielle from [employer]. Physical exam (Primary Care) Vital Signs: Last Vital Signs Pulse 64 08/01/23 08:22 BP 122/78 08/01/23 08:22 Pulse Ox 98 08/01/23 08:22 Oxygen Delivery Method Room Air 08/01/23 08:22 Care Plan Goal for BP management: Blood pressure is in range. On no medications. BMI result Body Mass Index 21.9 Tobacco/Smoking Status: Tobacco use Status Tobacco use date assessed 01/24/23 08/01/23 08:25 Patient Tobacco Use Status Former Tobacco user 08/01/23 08:25 Tobacco use type Cigarette 08/01/23 08:25 e-Cigarette/Vaping Use Never Used 08/01/23 08:25 PHQ-9: PHQ-9 Score PHQ-9: Total score 7 08/01/23 08:25 Thrive Assessment: Date of Thrive Assessment Date Thrive assessed 01/24/23 08/01/23 08:25 Const General: cooperative and healthy appearing Nutritional Appearance: well nourished Orientation/consciousness: patient oriented x3 Limitations: no limitations HENMT Head: Yes normal to inspection Eyes General: appearance normal, both eyes and all related structures Neck Neck: Yes normal visual inspection Chest Chest palpation & inspection: normal palpation of entire chest wall Resp Effort & Inspection: normal respiratory effort Neuro General: patient oriented x3 Assessment and Plan Assessment & Plan (1) Pure hypercholesterolemia, unspecified: Code(s): E78.00 - Pure hypercholesterolemia, unspecified Plan: Fasting lipid levels have been ordered. Patient has been encouraged to try the diet and exercise route. Repeat lipid level in 3 months again. Patient is willing to try statins if there is no change in the numbers. (2) Generalized anxiety disorder: Code(s): F41.1 - Generalized anxiety disorder Plan: Suboptimal response to citalopram. Cognitive behavioral therapy added to the treatment. Patient was encouraged to meditate and exercise. Orders: Orders Lipid Panel Today E78.00 - Pure hypercholesterolemia, unspecified, F41.1 - Generalized anxiety disorder Coding Level of Care Code Est Pt Level 4 (68144) Diagnoses Pure hypercholesterolemia, unspecified E78.00 Generalized anxiety disorder F41.1
== END 2023-08-01 09:00 | disposition home or self-care (01) ==
PROVIDERS: Visit Provider Internal Medicine
DX: E78.00 Pure hypercholesterolemia, unspecified (principal); F41.1 Generalized anxiety disorder
CPT/HCPCS: 99214

== ENCOUNTER 2023-09-25 10:59 | Outpatient (REF) | payer OTHER, SELFPAY ==
--- NOTE | ~2023-09-25 | MM_ITS ---
EXAMINATION: MM DIAGNOSTIC DIGITAL BREAST TOMOSYNTHESIS, RIGHT CLINICAL INFORMATION: Follow-up stability of 2 one view asymmetric densities seen right CC view only, anterior medial and lateral. On prior imaging 03/14/2023 these appear to represent simple cysts. COMPARISON: Mammography: 03/14/2023, 02/13/2023, 12/29/2021, 12/15/2020. TECHNIQUE: Digital right breast tomosynthesis is performed in both the craniocaudal and mediolateral oblique views along with computer-aided detection (CAD). Synthesized 2D images are generated from the tomosynthesis. FINDINGS: The breasts are heterogeneously dense, which may obscure small masses (ACR BI-RADS breast composition Category c). Pituitary asymmetries seen on the CC view of the right breast, anterior one third, are stable to less conspicuous on the current exam. Previous ultrasound demonstrated these to represent cysts. There are no suspicious masses, suspicious grouped calcifications, or areas of architectural distortion. The parenchymal pattern is stable from prior exams. There are no skin or axillary changes. MM/MM tomosynthesis diagnostic RT IMPRESSION: There are no significant changes from prior study. Benign anterior asymmetries related to underlying cysts in the right breast. Recommend the patient return to routine annual screening. ASSESSMENT: BI-RADS BI-RADS 2 - Benign Findings RECOMMENDATION: 1 year F/U Results were provided to the patient at time of visit by the technologist. This patient's information was entered into a reminder system with a target due date for their next mammogram.
== END 2023-09-25 11:00 | disposition home or self-care (01) ==
LOC: HO.MAMMO 10:59
PROVIDERS: PCP Internal Medicine; Visit Provider Internal Medicine
DX: R92.2 Inconclusive mammogram (principal)
CPT/HCPCS: 77061; 77065

== ENCOUNTER → 2023-09-25 11:00 | Outpatient (BNV) | payer OTHER, SELFPAY | PROVIDERS: PCP Internal Medicine; Visit Provider Radiology Diagnostic Radiology | DX: R92.2 Inconclusive mammogram (principal) | CPT/HCPCS: 77061; 77065 ==

== ENCOUNTER 2024-02-06 08:01 | Outpatient (REF) | payer OTHER, SELFPAY ==
[2024-02-06 09:19] LABS: Cholesterol 220 mg/dL (<200); HDL Cholesterol 55 mg/dL (>40); LDL Cholesterol Calculated 148 mg/dL (<100); Triglycerides 88 mg/dL (<150)
== END 2024-02-06 08:02 | disposition home or self-care (01) ==
LOC: HO.LAB 08:01
PROVIDERS: PCP Internal Medicine; Visit Provider Internal Medicine
DX: E78.00 Pure hypercholesterolemia, unspecified (principal); F41.1 Generalized anxiety disorder
CPT/HCPCS: 36415; 80061

== ENCOUNTER 2024-02-11 08:02 | Outpatient (AMB) | payer OTHER, SELFPAY ==
[2024-02-11 08:04] VITALS: BP 112/68; PULSE 55; O2SAT 98; BMI 23.6
--- NOTE | 2024-02-11 08:04 | A.OFFPC_ITS ---
Vital Signs 02/11/24 08:04 Height 5 ft 2 in Weight 129 lb BMI 23.6 BP 112/68 Blood Pressure Location Lt brachial Position Standing Pulse 55 Pulse Source Pulse Oximeter Pulse Oximetry (%) 98 Oxygen Delivery Method Room Air Intake Visit Reasons: 6mth f/u Allergies maple trees Allergy (Unknown, Uncoded 02/11/24 08:34) Unknown Medication List - Last Reconciled 02/11/24 by Umer Holland MD citalopram (Celexa) 20 mg (2 x 10 mg) PO DAILY fluticasone propionate 50 mcg/actuation 1 intranasal DAILY lorazepam 0.5 mg PO DAILY Tobacco use date assessed: 02/11/24 Dental Screening Dental Screen Date: 02/11/24 Did you have a dental visit in the last 12 months?: Yes Did you have a dental problem in the last 6 months where you did not have access to dental care?: No Was dental information given to patient?: Patient has dentist HPI 6mth f/u HPI Details 48-year-old female presents to the offic e to discuss her chronic medical conditions. Patient reports that her anxiety symptoms have improved but not completely resolved. She believes she has reached a plateau face in treatment. Still resistant to see a psychiatrist or a therapist. Patient is taking Celexa daily and lorazepam intermittently. She would like to return to the use of Klonopin instead of lorazepam. She feels that medication was helping her better. 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 This has added more stress into her daily life. Sleep patterns are okay. [facility] Medical History Pure hypercholesterolemia, unspecified FH: breast cancer in first degree relative COVID-19 vaccine administered Migraine with aura PTSD (post-traumatic stress disorder) Ectopic Chest pain Surgical History H/O unilateral salpingectomy History of loop electrical excision procedure (LEEP) History of tonsillectomy Family History Father No problems noted. Mother No problems noted. Sister Breast cancer, Onset Age: 38 Social History Housing: House Alcohol intake: current Alcohol intake frequency: holidays/special occasions only Patient Tobacco Use Status: Former Tobacco user Tobacco use type: Cigarette e-Cigarette/Vaping Use: Never Used Second Hand Smoke Exposure: No service: No Current occupational status: employed Current occupation: Medical billing Sexual orientation: Straight/Heterosexual Gender identity: Female Cognitive needs: No Hearing needs: No Vision needs: Yes (glasses) Female Reproductive History Menstrual Age of Menarche: 15 Questionnaire PHQ-9 Over the last 2 weeks, how often have you been bothered by any of the following problems? 1. Little interest or pleasure in doing things: several days 2. Feeling down, depressed, or hopeless: more than half the days 3. Trouble falling or staying asleep, or sleeping too much: several days 4. Feeling tired or having little energy: several days 5. Poor appetite or overeating: several days 6. Feeling bad about yourself - or that you are a failure or have let yourself or your family down: not at all 7. Trouble concentrating on things, such as reading the newspaper or watching television: several days 8. Moving or speaking so slowly that other people could have noticed. Or the opposite - being so fidgety or restless that you have been moving around a lot more than usual: not at all 9. Thoughts that you would be better off or of hurting yourself in some way: not at all Total score: 7 Depression Screening Interpretation: Positive Depression Screening Follow-up: Existing condition, In treatment and New Medication prescribed Depression Screening Done: Yes Source: Developed by Drs. Rene Riggins, Sunshine Whitehead, Matt Estrella and colleagues, with an educational dannielle from [employer]. Thrive Questionnaire Date Thrive assessed: 02/11/24 I am a: Patient What is your living situation today?: I have a steady place to live Within the past 12 months, did the food you bought not last and you didn't have the money to get more?: Never true Within the past 12 months, did you worry whether your food would run out before you got money to buy more?: Never true Do you have trouble paying for medicines?: No Do you have trouble getting transportation to medical appointments?: No Do you have trouble paying your heating and electricity bill?: No Do you have trouble taking care of your child, family member or friend?: No Do you have trouble with day-to-day activities such as bathing, preparing meals, shopping, managing finances, etc.?: No Are you currently unemployed and looking for a job?: No Are you interested in more education?: No Currently or been in a relationship where the following occur: no concerns reported THRIVE Score: 0 AUDIT C Alcohol Use Questionnaire (AUDIT-C) 1. How often do you have a drink containing alcohol?: Monthly or less 2. How many drinks containing alcohol do you have on a typical day when you are drinking?: 1 or 2 Total Score: 1 PAUL-7 AMB Questionnaire PAUL-7 Date PAUL - 7 assessed: 02/11/24 Feeling nervous, anxious, or on edge: 1 = Several days Not being able to stop or control worryin = Several days Worrying too much about different things: 1 = Several days Trouble relaxin = Not at all Being so restless that it is hard to sit still: 0 = Not at all Becoming easily annoyed or irritable: 0 = Not at all Feeling afraid as if something awful might happen: 0 = Not at all Total PAUL-7 score (0-4 normal; 5-9 mild; 10-14 moderate; 15-21 severe): 3 Source: Developed by Drs. Rene Riggins, Sunshine Whitehead, Matt Estrella and colleagues, with an educational dannielle from [employer]. Physical exam (Primary Care) Vital Signs: Last Vital Signs Pulse 55 02/11/24 08:04 BP 112/68 02/11/24 08:04 Pulse Ox 98 02/11/24 08:04 Oxygen Delivery Method Room Air 02/11/24 08:04 Care Plan Goal for BP management: Blood pressure is in range. BMI result Body Mass Index 23.6 Tobacco/Smoking Status: Tobacco use Status Tobacco use date assessed 02/11/24 02/11/24 08:09 Patient Tobacco Use Status Former Tobacco user 02/11/24 08:09 Tobacco use type Cigarette 02/11/24 08:09 e-Cigarette/Vaping Use Never Used 02/11/24 08:09 PHQ-9: PHQ-9 Score PHQ-9: Total score 7 02/11/24 08:09 Depression Screening Interpretation: Positive Depression Screening Follow-up: Existing condition, In treatment and New Medication prescribed Thrive Assessment: Date of Thrive Assessment Date Thrive assessed 02/11/24 02/11/24 08:09 Currently or been in a relationship where the following occur: no concerns reported Const General: cooperative and healthy appearing Nutritional Appearance: well nourished Orientation/consciousness: patient oriented x3 Limitations: no limitations HENMT Head: Yes normal to inspection Eyes General: appearance normal, both eyes and all related structures Neck Neck: Yes normal visual inspection Chest Chest palpation & inspection: normal palpation of entire chest wall Resp Effort & Inspection: normal respiratory effort Neuro General: patient oriented x3 Assessment and Plan Assessment & Plan (1) Generalized anxiety disorder: Code(s): F41.1 - Generalized anxiety disorder Plan: Continue Celexa at current dosage. Lorazepam has been discontinued and Klonopin started. Encouraged patient to see a therapist. (2) Pure hypercholesterolemia, unspecified: Code(s): E78.00 - Pure hypercholesterolemia, unspecified Plan: LDL continues to be elevated. Patient continues to decline use of medications. Counseling on the importance of diet and exercise. Coding Level of Care Code Est Pt Level 4 (51078) Diagnoses Generalized anxiety disorder F41.1 Pure hypercholesterolemia, unspecified E78.00
== END 2024-02-11 08:33 | disposition home or self-care (01) ==
PROVIDERS: PCP Internal Medicine; Visit Provider Internal Medicine
DX: F41.1 Generalized anxiety disorder (principal); E78.00 Pure hypercholesterolemia, unspecified
CPT/HCPCS: 99214

== ENCOUNTER 2024-03-24 08:40 | Outpatient (REF) | payer OTHER, SELFPAY | END 2024-03-24 08:41 | disposition home or self-care (01) | LOC: HO.MAMMO 08:40 | PROVIDERS: PCP Internal Medicine; Visit Provider Internal Medicine | DX: Z12.31 Encounter for screening mammogram for malignant neoplasm of breast (principal) | CPT/HCPCS: 77063; 77067 ==

== ENCOUNTER → 2024-03-24 08:45 | Outpatient (BNV) | payer OTHER, SELFPAY | PROVIDERS: PCP Internal Medicine; Visit Provider Radiology Diagnostic Radiology | DX: Z12.31 Encounter for screening mammogram for malignant neoplasm of breast (principal) | CPT/HCPCS: 77063; 77067 ==

== ENCOUNTER 2024-05-22 10:02 | Outpatient (REF) | payer OTHER, SELFPAY ==
[2024-05-22 16:16] LABS: CT PCR NOT DETECTED (Not Detect.); NG PCR NOT DETECTED (Not Detect.)
[2024-05-24 04:12] LABS: HBc Num1 0.03 S/CO (0.00-0.79); HIV AB/AG Nonreactive (Nonreactive); HIV Num 1 0.06 S/CO (0.00-0.99); Hepatitis B Core Antibody Nonreactive (Nonreactive); Syphilis Screen Nonreactive (Nonreactive); ~HepC Num1 0.23 S/CO (0.00-0.79); ~Hepatitis C Antibody Nonreactive (Nonreactive)
== END 2024-05-22 10:03 | disposition home or self-care (01) ==
LOC: HO.LAB 10:02
PROVIDERS: PCP Internal Medicine; Visit Provider Advanced Practice Midwife
DX: Z20.2 Contact with and (suspected) exposure to infections with a predominantly sexual mode of transmission (principal); Z01.419 Encounter for gynecological examination (general) (routine) without abnormal findings; Z32.02 Encounter for pregnancy test, result negative
CPT/HCPCS: 81025; 86704; 86780; 86803; 87389; 87491; 87591; 99396

== ENCOUNTER 2024-05-22 10:02 | Outpatient (AMB) | payer OTHER, SELFPAY ==
--- NOTE | 2024-05-22 10:05 | MHC.OFFVIS ---
Vital Signs 05/22/24 10:07 Height 5 ft 2 in Weight 130 lb BMI 23.8 BP 92/60 Intake Visit Reasons: ADMISSION DISCHARGE RN annual exam Intake Note: pt would like STD testing Mid Level Business Analyst: Mid Level Business Analyst Present (Jany) Allergies maple trees Allergy (Unknown, Uncoded 05/22/24 10:06) Unknown Is last menstrual period known: Yes Last menstrual period: 04/27/24 HPI Comments Details: She is a premenopausal woman presenting for annual examination. Doing well with concerns: reports, discharge with odor. She tries to eat healthy and stays active with exercise. Recent removal of Nexplanon on 04/26/2024. Uses a menstrual cup feels her cycle was a little off. Was sexually active. She denies vaginal itching and irritation. STI screening offered; she accepts. Denies family history of breast, ovarian or colon cancer. Last pap smear 2022, negative. History of a LEEP 2006. Mammogram: 2023. [facility] Medical History (Updated 05/22/24 @ 10:16 by Keli Avelar CNM) Pure hypercholesterolemia, unspecified FH: breast cancer in first degree relative COVID-19 vaccine administered Migraine with aura PTSD (post-traumatic stress disorder) Ectopic Chest pain Surgical History H/O unilateral salpingectomy History of loop electrical excision procedure (LEEP) History of tonsillectomy Family History (Updated 05/22/24 @ 10:40 by TIANA Coleman) Father No problems noted. Mother No problems noted. Sister Breast cancer, Onset Age: 38 Social History Housing: House Alcohol intake: current Alcohol intake frequency: holidays/special occasions only Patient Tobacco Use Status: Former Tobacco user Tobacco use type: Cigarette e-Cigarette/Vaping Use: Never Used Second Hand Smoke Exposure: No service: No Current occupational status: employed Current occupation: Medical billing Sexual orientation: Straight/Heterosexual Gender identity: Female Cognitive needs: No Hearing needs: No Vision needs: Yes (glasses) Female Reproductive History Menstrual Age of Menarche: 15 Duration of menses: 3-5 days Date of last menstrual period: 04/27/24 control method: none Total pregnancies: 7 Full term: 3 Number of Living Children: 3 Ab spontaneous: 3 Ectopics: 1 Date of last pap smear: 03/21/23 (neg pap and hpv) History of abnormal pap smear: Yes (hx leep) Date of Mammogram: 03/24/24 (Birad 1) Review of Systems Const All systems reviewed & are unremarkable except as noted in HPI and below Reports as per HPI Eyes Reports no additional complaints ENT Reports no additional complaints Card Reports no additional complaints Resp Reports no additional complaints GI Reports as per HPI and Reports no additional complaints Reports as per HPI Musc Reports no additional complaints Skin/Breast Reports as per HPI Neuro Reports no additional complaints Psych Reports no additional complaints Endo Reports no additional complaints Kurt/Lymph Reports no additional complaints Aller/Immun Reports no additional complaints Physical Exam Vital Signs: Last Vital Signs BP 92/60 05/22/24 10:07 BMI result Body Mass Index 23.8 Const General: cooperative, healthy appearing, no acute distress, well developed and alert Orientation/consciousness: patient oriented x3 HEENT Head: Yes normal to inspection Eyes General: appearance normal, both eyes and all related structures Neck Neck: Yes normal visual inspection Thyroid: Thyroid normal Chest Chest palpation & inspection: normal inspection of the chest and other (no puckering, dimpling, peau de orange, retraction, discharge, masses) Breast/axilla inspection: normal inspection of the breasts Breast/axilla palpation: normal palpation of the breasts Resp Effort & Inspection: normal respiratory effort GI Inspection: Yes normal to inspection Palpation (GI): Soft to palpation Rectal Exam - Female: deferred General: Yes bladder normal to palpation External Female Exam: normal external appearance and normal appearance of the urethra Speculum Exam - Vagina: normal appearance of the vagina, normal palpation and abnormal vaginal discharge (Productive, thin slightly frothy) Speculum Exam - Cervix: normal appearance of the cervix, normal palpation and Other cervical findings present (Post LEEP appearance) Bimanual exam- vagina & uterus: normal bimanual exam, normal palpation, uterine size normal, bladder normal to palpation, normal palpation and non-tender Bimanual Exam- Adnexa, other: no masses Skin General skin exam: no rashes or lesions noted Rashes: no rashes Neuro General: patient oriented x3 Cognition (Neuro): normal cognition Extrem General: Yes normal to inspection Psych Attitude: cooperative Thought process: Normal thought process present Results AMB Test Urine AMB Test Urine Negative Last Edit by TIANA Coleman on 05/22/24 10:43 Results Reviewed Results Reviewed: Laboratory Last Values [facility] Clinic Negative 05/22/24 10:34 Assessment & Plan Assessment & Plan (1) Encounter for well woman exam with routine gynecological exam: Code(s): Z01.419 - Encounter for gynecological examination (general) (routine) without abnormal findings Category: Medical Plan Discussed: Current recommendations for pap smears per ASCCP guidelines. Breast awareness and periodic breast exams. Maintain a healthy lifestyle including a well balanced diet and routine exercise. Use condoms for STI and prevention. Desires STD blood work today. Mammogram yearly. Newl remove Nexplanon menstrual cycles, perimenopausal changes in anticipatory guidance. If cycles becoming prolonged, and heavy or less than 24 days apart, or desires to start control to follow up in the office. Patient verbalizes understanding and agrees to the plan of care. She was given opportunity to ask questions and all questions were answered to the best of my ability. RTO in one year for annual data librarian examination. This note is constructed using voice recognition software. While every effort has been made to ensure accuracy, user experience lead errors may have been included. Orders: Orders Bacterial Vaginosis Panel Today Z20.2 - Contact with and (suspected) exposure to infections with a predominantly sexual mode of transmission CT NG by PCR Today Z20.2 - Contact with and (suspected) exposure to infections with a predominantly sexual mode of transmission HIV Ab/Ag Today Z20.2 - Contact with and (suspected) exposure to infections with a predominantly sexual mode of transmission Hepatitis B Core Antibody Today Z20.2 - Contact with and (suspected) exposure to infections with a predominantly sexual mode of transmission Syphilis Screen Today Z20.2 - Contact with and (suspected) exposure to infections with a predominantly sexual mode of transmission Hepatitis C Antibody Reflex Today Z20.2 - Contact with and (suspected) exposure to infections with a predominantly sexual mode of transmission AMB HCG Urine Test Today Z32.02 - Encounter for test, result negative Coding Level of Care Code Est Pt Prev Care 40-64y(57101) Diagnoses Encounter for well woman exam with routine gynecological exam Z01.419
[2024-05-22 10:07] VITALS: BP 92/60; BMI 23.8
== END 2024-05-22 10:42 | disposition home or self-care (01) ==
PROVIDERS: PCP Internal Medicine; Visit Provider Advanced Practice Midwife
DX: Z32.02 Encounter for pregnancy test, result negative (principal); Z01.419 Encounter for gynecological examination (general) (routine) without abnormal findings
CPT/HCPCS: 99396

== ENCOUNTER 2024-05-22 10:34 | Outpatient (REF) | payer OTHER, SELFPAY ==
[2024-05-22 15:50] LABS: Bacterial Vaginosis PCR POSITIVE (Negative); Candida Group PCR NOT DETECTED (Not Detect); Candida glab krusei PCR NOT DETECTED (Not Detect); Trichomonas vaginalis PCR NOT DETECTED (Not Detect)
== END 2024-05-22 10:35 | disposition home or self-care (01) ==
LOC: HO.LNP 10:34
PROVIDERS: Visit Provider Advanced Practice Midwife
DX: Z20.2 Contact with and (suspected) exposure to infections with a predominantly sexual mode of transmission (principal)
CPT/HCPCS: 0352U

== ENCOUNTER 2024-08-19 09:09 | Outpatient (AMB) | payer OTHER, SELFPAY ==
--- NOTE | 2024-08-19 09:11 | A.OFFPC_ITS ---
Vital Signs 08/19/24 09:12 Height 5 ft 2 in Weight 130 lb 4 oz BMI 23.8 BP 110/72 Blood Pressure Location Lt brachial Position Sitting Pulse 69 Pulse Source Pulse Oximeter Pulse Oximetry (%) 99 Oxygen Delivery Method Room Air Intake Visit Reasons: 6 month follow up Intake Note: Patient is here to follow up on PAUL, Hypercholesterolemia. Pt decline flu shot today. Field Kiln Burner Required: No Sales Contract Administrator: Not Required per policy Accompanied by: Self / Same As Patient Allergies metronidazole Adverse Reaction (Unknown, Verified 08/19/24 09:39) GI disturbance maple trees Allergy (Unknown, Uncoded 08/19/24 09:39) Unknown Medication List - Last Reconciled 08/19/24 by Umer Holland MD citalopram (Celexa) 20 mg (2 x 10 mg) PO DAILY clonazepam 0.5 mg PO DAILY fluticasone propionate 50 mcg/actuation 1 intranasal DAILY metronidazole 500 mg PO BID 7 days metronidazole 0.75%(37.5mg/5gram) 1 appful vaginal BEDTIME 5 days Tobacco use date assessed: 08/19/24 Dental Screening Dental Screen Date: 02/11/24 HPI 6 month follow up HPI Details 49-year-old female presents to the offic e to discuss her chronic medical conditions. Patient has difficulty concentrating and focusing at work. 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 She believes that she is under paid and over worked. She is trying to start a new business. Outside her work, she feels fine and more relaxed. She is wondering if she should continue the combination of Celexa regularly and Klonopin occasionally. Also complaining of sensitivity and sharp pain in the knee. She has had this discomfort for many years but it has worsened recently. Unable to bear body weight especially when she is doing yoga. [facility] Medical History Pure hypercholesterolemia, unspecified FH: breast cancer in first degree relative COVID-19 vaccine administered Migraine with aura PTSD (post-traumatic stress disorder) Ectopic Chest pain Surgical History H/O unilateral salpingectomy History of loop electrical excision procedure (LEEP) History of tonsillectomy Family History Father No problems noted. Mother No problems noted. Sister Breast cancer, Onset Age: 38 Social History Housing: House Alcohol intake: current Alcohol intake frequency: holidays/special occasions only Patient Tobacco Use Status: Former Tobacco user Tobacco use type: Cigarette e-Cigarette/Vaping Use: Never Used Second Hand Smoke Exposure: Yes service: No Current occupational status: employed Current occupation: Medical billing Sexual orientation: Straight/Heterosexual Gender identity: Female Cognitive needs: No Hearing needs: No Vision needs: Yes (glasses) Female Reproductive History Menstrual Age of Menarche: 15 Questionnaire Thrive Questionnaire Date Thrive assessed: 02/11/24 AUDIT C Alcohol Use Questionnaire (AUDIT-C) 2. How many drinks containing alcohol do you have on a typical day when you are drinking?: 1 or 2 3. How often do you have six or more drinks on one occasion?: Less than monthly Total Score: 1 PAUL-7 AMB Questionnaire PAUL-7 Date PAUL - 7 assessed: 02/11/24 Source: Developed by Drs. Rene Riggins, Sunshine Whitehead, Matt Estrella and colleagues, with an educational dannielle from [employer]. Physical exam (Primary Care) Vital Signs: Last Vital Signs Pulse 69 08/19/24 09:12 BP 110/72 08/19/24 09:12 Pulse Ox 99 08/19/24 09:12 Oxygen Delivery Method Room Air 08/19/24 09:12 Care Plan Goal for BP management: Blood pressure is in range. BMI result Body Mass Index 23.8 Tobacco/Smoking Status: Tobacco use Status Tobacco use date assessed 08/19/24 08/19/24 09:16 Patient Tobacco Use Status Former Tobacco user 08/19/24 09:16 Tobacco use type Cigarette 08/19/24 09:16 e-Cigarette/Vaping Use Never Used 08/19/24 09:16 Thrive Assessment: Date of Thrive Assessment Date Thrive assessed 02/11/24 08/19/24 09:16 Const General: cooperative and healthy appearing Nutritional Appearance: well nourished Orientation/consciousness: patient oriented x3 Limitations: no limitations HENMT Head: Yes normal to inspection Eyes General: appearance normal, both eyes and all related structures Neck Neck: Yes normal visual inspection Chest Chest palpation & inspection: normal palpation of entire chest wall Resp Effort & Inspection: normal respiratory effort Neuro General: patient oriented x3 Coding Level of Care Code Est Pt Level 4 (06660) Complex EM visit Add On G2211 Diagnoses Generalized anxiety disorder F41.1 Pure hypercholesterolemia, unspecified E78.00 Knee pain, right M25.561 Assessment & Plan Assessment & Plan (1) Generalized anxiety disorder: Code(s): F41.1 - Generalized anxiety disorder Category: Medical Plan: Rather than discontinuing the Celexa, I suggested patient see a mental health provider to determine if an alternative medication will help. Patient is adamant that she does not want to speak to a therapist. She has agreed to see a mental health provider. (2) Pure hypercholesterolemia, unspecified: Code(s): E78.00 - Pure hypercholesterolemia, unspecified Category: Medical Plan: Fasting blood work has been ordered. Based on the results statin will be suggested. (3) Knee pain, right: Code(s): M25.561 - Pain in right knee Plan: On clinical exam, patient is experiencing some discomfort at the joint line. Full range of motion. An x-ray of the knee has been ordered. An orthopedic opinion will be obtained to see if patient can benefit from a local steroid injection. Orders: Referrals Gastroenterology Referral Z12.11 - Encounter for screening for malignant neoplasm of colon Psychiatry Outpatient Consultation Service F41.1 - Generalized anxiety disorder
[2024-08-19 09:12] VITALS: BP 110/72; PULSE 69; O2SAT 99; BMI 23.8
== END 2024-08-19 09:36 | disposition home or self-care (01) ==
LOC: HO.HMCH 09:09
PROVIDERS: PCP Internal Medicine; Visit Provider Internal Medicine
DX: F41.1 Generalized anxiety disorder (principal); E78.00 Pure hypercholesterolemia, unspecified; M25.561 Pain in right knee

== ENCOUNTER → 2024-08-19 09:09 | Outpatient (BNVA) | payer OTHER, SELFPAY | PROVIDERS: PCP Internal Medicine; Visit Provider Internal Medicine | DX: F41.1 Generalized anxiety disorder (principal); E78.00 Pure hypercholesterolemia, unspecified; M25.561 Pain in right knee | CPT/HCPCS: 99212 ==

== ENCOUNTER 2025-03-04 10:41 | Outpatient (AMB) | payer OTHER, SELFPAY ==
--- NOTE | 2025-03-04 11:01 | MHC.PC.OV ---
Vital Signs 03/04/25 11:02 Height 5 ft 2 in Weight 135 lb BMI 24.7 BP 118/60 Blood Pressure Location Lt brachial Position Sitting Pulse 60 Pulse Source Pulse Oximeter Temp 97.1 F Temp Source Temporal Artery Scan Pulse Oximetry (%) 100 Oxygen Delivery Method Room Air Intake Visit Reasons: 6 month f/u, resched Intake Note: Patient is here to follow up on Hypercholesterolemia, PTSD. Oxygen System Tester Required: No Maintenance Journeyman: Not Required per policy Accompanied by: Self / Same As Patient Allergies metronidazole Adverse Reaction (Unknown, Verified 03/04/25 11:02) GI disturbance maple trees Allergy (Unknown, Uncoded 03/04/25 11:02) Unknown Tobacco use date assessed: 03/04/25 Dental Screening Dental Screen Date: 03/04/25 Did you have a dental visit in the last 12 months?: Yes Did you have a dental problem in the last 6 months where you did not have access to dental care?: No Was dental information given to patient?: Patient has dentist [facility] Medical History Pure hypercholesterolemia, unspecified FH: breast cancer in first degree relative COVID-19 vaccine administered Migraine with aura PTSD (post-traumatic stress disorder) Ectopic Chest pain Surgical History H/O unilateral salpingectomy History of loop electrical excision procedure (LEEP) History of tonsillectomy Family History Father No problems noted. Mother No problems noted. Sister Breast cancer, Onset Age: 38 Social History Housing: House Alcohol intake: current Alcohol intake frequency: holidays/special occasions only Patient Tobacco Use Status: Former Tobacco user Tobacco use type: Cigarette e-Cigarette/Vaping Use: Never Used Second Hand Smoke Exposure: Yes service: No Current occupational status: employed Current occupation: Medical billing Sexual orientation: Straight/Heterosexual Gender identity: Female Cognitive needs: No Hearing needs: No Vision needs: Yes (glasses) Female Reproductive History Menstrual Age of Menarche: 15 Questionnaire PHQ-9 Over the last 2 weeks, how often have you been bothered by any of the following problems? 1. Little interest or pleasure in doing things: several days 2. Feeling down, depressed, or hopeless: several days 3. Trouble falling or staying asleep, or sleeping too much: several days 4. Feeling tired or having little energy: several days 5. Poor appetite or overeating: several days 6. Feeling bad about yourself - or that you are a failure or have let yourself or your family down: not at all 7. Trouble concentrating on things, such as reading the newspaper or watching television: not at all 8. Moving or speaking so slowly that other people could have noticed. Or the opposite - being so fidgety or restless that you have been moving around a lot more than usual: not at all 9. Thoughts that you would be better off or of hurting yourself in some way: not at all Total score: 5 Depression Screening Interpretation: Positive Depression Screening Done: Yes Source: Developed by Drs. Rene Riggins, Sunshine Whitehead, Matt Estrella and colleagues, with an educational dannielle from [employer]. Thrive Questionnaire Date Thrive assessed: 03/02/25 I am a: Patient What is your living situation today?: I have a steady place to live Within the past 12 months, did the food you bought not last and you didn't have the money to get more?: Never true Within the past 12 months, did you worry whether your food would run out before you got money to buy more?: Never true Do you have trouble paying for medicines?: No Do you have trouble getting transportation to medical appointments?: No Do you have trouble paying your heating and electricity bill?: No Do you have trouble taking care of your child, family member or friend?: No Do you have trouble with day-to-day activities such as bathing, preparing meals, shopping, managing finances, etc.?: No Are you currently unemployed and looking for a job?: No Are you interested in more education?: No Please select the resources that you would like help with: None Currently or been in a relationship where the following occur: No concerns reported THRIVE Score: 0 AUDIT C Alcohol Use Questionnaire (AUDIT-C) 1. How often do you have a drink containing alcohol?: 2-4 times a month 2. How many drinks containing alcohol do you have on a typical day when you are drinking?: 3 or 4 3. How often do you have six or more drinks on one occasion?: Less than monthly Total Score: 4 PAUL-7 AMB Questionnaire PAUL-7 Date PAUL - 7 assessed: 03/04/25 Feeling nervous, anxious, or on edge: 1 = Several days Not being able to stop or control worryin = Several days Worrying too much about different things: 1 = Several days Trouble relaxin = Several days Being so restless that it is hard to sit still: 0 = Not at all Becoming easily annoyed or irritable: 1 = Several days Feeling afraid as if something awful might happen: 0 = Not at all Total PAUL-7 score (0-4 normal; 5-9 mild; 10-14 moderate; 15-21 severe): 5 Source: Developed by Drs. Rene Riggins, Sunshine Whitehead, Matt Estrella and colleagues, with an educational dannielle from [employer]. Physical exam (Primary Care) Vital Signs: Last Vital Signs Temp 97.1 F 03/04/25 11:02 Pulse 60 03/04/25 11:02 BP 118/60 03/04/25 11:02 Pulse Ox 100 03/04/25 11:02 Oxygen Delivery Method Room Air 03/04/25 11:02 BMI result Body Mass Index 24.7 Tobacco/Smoking Status: Tobacco use Status Tobacco use date assessed 03/04/25 03/04/25 11:06 Patient Tobacco Use Status Former Tobacco user 03/04/25 11:06 Tobacco use type Cigarette 03/04/25 11:06 e-Cigarette/Vaping Use Never Used 03/04/25 11:06 PHQ-9: PHQ-9 Score PHQ-9: Total score 5 03/04/25 11:06 Depression Screening Interpretation: Positive Thrive Assessment: Date of Thrive Assessment Date Thrive assessed 03/02/25 03/04/25 11:06 Currently or been in a relationship where the following occur: No concerns reported Coding Level of Care Code Est Pt Level 4 (28249) Complex EM visit Add On G2211 Diagnoses Generalized anxiety disorder F41.1 Pure hypercholesterolemia, unspecified E78.00 Assessment & Plan Assessment & Plan (1) Generalized anxiety disorder: Code(s): F41.1 - Generalized anxiety disorder Category: Medical Plan: Anxiety and Panic symptoms appear to be well controlled. She now has apathy and poor drive. Has a scheduled appt with Cindi Bowser next week. (2) Pure hypercholesterolemia, unspecified: Code(s): E78.00 - Pure hypercholesterolemia, unspecified Category: Medical Plan: BRAXTON drawn, will call with results Plan History of Present Illness The patient is a 50-year-old female presenting for a follow-up regarding her management of anxiety and depression. She reports significant improvement in anxiety symptoms while on medications including citalopram and clonazepam. Her current complaint is primarily centered around depressive symptoms, including a profound lack of energy and motivation, described as feeling lazy, which negatively impacts her daily activities and household tasks. 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 Despite plenty of time available, she finds herself unmotivated to perform daily tasks, preferring to engage in leisure activities such as massages and rest. A future plan includes a specialist consultation and thyroid function testing. A mammogram is already scheduled. She acknowledges needing improvement in her physical activity levels, although she maintains personal hygiene and grooming standards due to her professional responsibilities. No refills are currently needed, and she sees this as a sign of effective anxiety management. Social History - Employment: Recently transitioned from a day job to opening a private practice in [place]. - Exercise: Recognizes a need for improved exercise routine. - Functional Status: Reports decreased energy and motivation affecting daily activities. - Activity Level: Engages in leisure activities such as massages; reports a lack of motivation for household tasks. Review of Systems - Psychiatric: Reports improvement in anxiety, persistent symptoms of depression including lack of motivation. - Musculoskeletal: Denies engaging in regular exercise. - Endocrine: Planning to check thyroid function due to lapse in recent testing. - General: Reports adequate personal care upkeep but increased tendency to prioritize rest. Physical Exam General: Cooperative and healthy appearing Nutritional Appearance: Well nourished Orientation/consciousness: Patient oriented x3 Limitations: No limitations Head: Normal to inspection General: Appearance normal, both eyes and all related structures Neck: Normal visual inspection Chest: Normal palpation of entire chest wall Respiratory: N ormal respiratory effort Neurology: Patient oriented x3, reports feeling very lazy and lacking energy despite improvement in anxiety symptoms. Results - Labs: Thyroid function test planned. - Imaging: Mammogram scheduled. Plan 1. Generalized Anxiety Disorder - Continue with current medication regimen. - Follow-up with a specialist for evaluation. 2. Major Depressive Disorder - Encourage increased physical activity and structured daily routine. - Conduct thyroid function testing to exclude underlying medical cause. Discussion Notes During the visit, I discussed with the patient her ongoing management of generalized anxiety disorder and observed improvements in symptoms under her current medication regimen. We talked about the significance of potential thyroid dysfunction contributing to her current depressive symptoms, and this will be assessed through scheduled blood work. Given her new practice management role and lifestyle changes, we explored ways to increase her engagement in daily activities, including integrating exercise as part of her routine. I underscored the importance of maintaining a balance and ensuring adequate follow-up with a specialist. No changes to her current medication were advised at this point as she was not reliant on clonazepam, indicating adequate anxiety control. Patient Instructions - Continue taking prescribed medications as directed. - Schedule and complete thyroid function blood test. - Maintain your scheduled mammogram appointment. - Aim to incorporate physical activity into your routine, even small amounts daily. - Adhere to structured daily scheduling for tasks. - Return for a follow-up as advised or sooner if symptoms deteriorate. Orders: Orders Liver Panel Today E78.00 - Pure hypercholesterolemia, unspecified, F41.1 - Generalized anxiety disorder UA and rflx microscopic Today E78.00 - Pure hypercholesterolemia, unspecified, F41.1 - Generalized anxiety disorder Basic Metabolic Panel Today E78.00 - Pure hypercholesterolemia, unspecified, F41.1 - Generalized anxiety disorder Lipid Panel Today E78.00 - Pure hypercholesterolemia, unspecified, F41.1 - Generalized anxiety disorder Thyroid Stimulating Hormone Today E78.00 - Pure hypercholesterolemia, unspecified, F41.1 - Generalized anxiety disorder Complete Blood Count no Diff Today E78.00 - Pure hypercholesterolemia, unspecified, F41.1 - Generalized anxiety disorder
[2025-03-04 11:02] VITALS: BP 118/60; PULSE 60; TEMP 36.2; O2SAT 100; BMI 24.7
--- OUTSIDE RECORDS SUMMARY | 2025-03-04 11:20 | XMS_ITS | Clinical Summary ---
Author Organization [facility] Address [address] [place] [phone] Phone Care Team Providers Care Character Artist Name Role Phone Unavailable Primary Care Provider Unavailabl e Immunizations Immunization Administration Dates Next Due DT 07/28/1986 DTP 08/28/1981 MMR 07/28/1990 Social History Tobacco Use Types Packs/Day Years Used Date Smoking Tobacco: Never Assessed Comments Unknown Sex and Gender Information Value Date Recorded Sex Assigned at Not on file Legal Sex Female 3:09 PM EDT Gender Identity Not on file Sexual Orientation Not on file Plan of Treatment Health Maintenance Due Date Last Done Comments Varicella Vaccines (1 of 2 - 13+ 2-dose series) 08/25/1990 DTaP,Tdap,and Td Vaccines (3 - Tdap) 1995 07/28/1986, 08/28/1981 Hepatitis B Vaccines (1 of 3 - 19+ 3-dose series) 02/26/1996 Influenza Vaccines (#1) 2024 COVID-19 Vaccine ( - 2023-2 5 season) 2024 MMR Vaccines Completed 07/28/1990 HIB Vaccines Aged Out No longer eligi ble based on patient's age to complete this topic HPV Vaccines Aged Out No longer eligi ble based on patient's age to complete this topic Hepatitis A Vaccines Aged Out No long er eligible based on patient's age to complete this topic IPV Vaccines Aged Out No longer eligi ble based on patient's age to complete this topic Men B Vaccine Aged Out No longer elig ible based on patient's age to complete this topic Meningococcal Vaccine Aged Out No flor kip eligible based on patient's age to complete this topic Pneumococcal Vaccine Aged Out No long er eligible based on patient's age to complete this topic
== END 2025-03-04 11:24 | disposition home or self-care (01) ==
LOC: HO.HMCH 10:42
PROVIDERS: PCP Internal Medicine; Visit Provider Internal Medicine
DX: F41.1 Generalized anxiety disorder (principal); E78.00 Pure hypercholesterolemia, unspecified

== ENCOUNTER → 2025-03-04 10:41 | Outpatient (BNVA) | payer OTHER, SELFPAY | PROVIDERS: PCP Internal Medicine; Visit Provider Internal Medicine | DX: F41.1 Generalized anxiety disorder (principal); E78.00 Pure hypercholesterolemia, unspecified; F43.10 Post-traumatic stress disorder, unspecified | CPT/HCPCS: 99212 ==

== ENCOUNTER 2025-03-30 08:25 | Outpatient (REF) | payer OTHER, SELFPAY ==
--- OUTSIDE RECORDS SUMMARY | 2025-03-30 08:40 | XMS_ITS | Clinical Summary ---
Author Organization [facility] Address [address] [place] [id number] Phone Care Team Providers Care Electron Beam Photo Mask Maker Name Role Phone Unavailable Primary Care Provider [...]
== END 2025-03-30 08:26 | disposition home or self-care (01) ==
LOC: HO.MAMMO 08:25
PROVIDERS: PCP Internal Medicine; Visit Provider Internal Medicine
DX: Z12.31 Encounter for screening mammogram for malignant neoplasm of breast (principal)
CPT/HCPCS: 77063; 77067; 90792

== ENCOUNTER → 2025-03-30 08:30 | Outpatient (BNV) | payer OTHER, SELFPAY | PROVIDERS: PCP Internal Medicine; Visit Provider Internal Medicine | DX: Z12.31 Encounter for screening mammogram for malignant neoplasm of breast (principal) | CPT/HCPCS: 77063; 77067 ==

== ENCOUNTER 2025-03-30 10:27 | Outpatient (AMB) | payer OTHER, SELFPAY ==
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
== END 2025-03-30 17:22 | disposition home or self-care (01) ==
LOC: HO.HOP 10:27
PROVIDERS: PCP Internal Medicine; Visit Provider Clinical Nurse Specialist Psychiatric/Mental Health
DX: F90.2 Attention-deficit hyperactivity disorder, combined type (principal); F41.1 Generalized anxiety disorder
CPT/HCPCS: 90792

== ENCOUNTER 2025-04-23 06:44 | Outpatient (REF) | payer OTHER, SELFPAY ==
[2025-04-23 07:46] LABS: Hematocrit 34.0 % (37.0-47.0); Hemoglobin 11.6 g/dl (12.0-16.0); Mean Corpuscular HGB Conc 34.1 g/dl (31.0-35.0); Mean Corpuscular Hemoglobin 27.6 pg (27.0-33.0); Mean Corpuscular Volume 80.8 fL (80.0-98.0); NRBC Abs Auto 0.000 X10*3/uL (0.0-0.012); NRBC Pct Auto 0.0 /100WBC (0.0-0.2); Platelet Count 208 X10*3/uL (160-400); Red Blood Count 4.21 X10*6/uL (4.20-5.50); White Blood Count 6.0 X10*3/uL (4.8-10.8)
[2025-04-23 08:11] LABS: Appearance Urine Clear; Glucose Urine UA Negative (Negative); PH 6.0 (5.0-9.0); Specific Gravity - Urine 1.025 (1.005-1.025); UMIC TRIGGER UA YES
[2025-04-23 08:35] LABS: Alanine Aminotransferase 12 U/L (0-31); Albumin Level 4.4 g/dL (3.5-5.0); Alkaline Phosphatase 56 U/L (39-117); Anion Gap 12 (12-20); Aspartate Amino Transferase 18 U/L (5-31); Blood Urea Nitrogen 10 mg/dL (9-16); Calcium 8.6 mg/dL (8.4-10.2); Carbon Dioxide 25 mmol/L (22-29); Chloride 105 mmol/L (96-108); Cholesterol 209 mg/dL (<200); Estimated Glomerular Filt Rate > 60; HDL Cholesterol 52 mg/dL (>40); Iron 86 mcg/dL (30-160); Percent Iron Saturation 25 % (15-50); Potassium 3.6 mmol/L (3.3-5.1); Sodium 138 mmol/L (135-145); Total Iron Binding Capacity 344 mcg/dL (228-428); Total Protein 6.4 g/dL (6.5-8.0); Triglycerides 81 mg/dL (<150); Unsaturated Iron Binding 258 ug/dL
[2025-04-23 08:48] LABS: Ferritin 29 ng/mL (10-250)
[2025-04-23 08:52] LABS: Folate 8.4 ng/mL (> or = 4.0); Vitamin B12 190 pg/mL (200-900)
[2025-04-23 08:54] LABS: Thyroid Stimulating Hormone 1.10 uIU/mL (0.32-4.0)
[2025-04-26 14:32] LABS: Transferrin 310 mg/dL (188-341)
[2025-04-28 12:53] LABS: Vitamin D 25-OH, D2 <4 ng/mL; Vitamin D 25-OH, D3 23 ng/mL; Vitamin D 25-OH, Total 23 ng/mL (30-100)
== END 2025-04-23 06:45 | disposition home or self-care (01) ==
LOC: HO.LAB 06:44
PROVIDERS: Absent Provider Internal Medicine; PCP Internal Medicine; Visit Provider Clinical Nurse Specialist Psychiatric/Mental Health
DX: F41.1 Generalized anxiety disorder (principal); E78.00 Pure hypercholesterolemia, unspecified; R53.83 Other fatigue; F90.2 Attention-deficit hyperactivity disorder, combined type
CPT/HCPCS: 36415; 80048; 80061; 80076; 81001; 81003; 82306; 82607; 82728; 82746; 83540; 84425; 84443; 84466; 85027

== ENCOUNTER 2025-04-27 09:36 | Outpatient (AMB) | payer OTHER, SELFPAY ==
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
--- OUTSIDE RECORDS SUMMARY | 2025-04-27 10:15 | XMS_ITS | Clinical Summary ---
Author Organization [facility] Address [address] [place] [phone] Phone Care Team Providers Care Stripper And Printer Name Role Phone Unavailable Primary Care Provider [...] of 3 - 19+ 3-dose series) 02/26/1996 COVID-19 Vaccine (2023-2 5 season) 2024 Influenza Vaccines (#1) 2025 MMR Vaccines Completed 07/28/1990 HIB Vaccines Aged [...]
== END 2025-04-27 10:12 | disposition home or self-care (01) ==
LOC: HO.HOP 09:36
PROVIDERS: PCP Internal Medicine; Visit Provider Clinical Nurse Specialist Psychiatric/Mental Health
DX: F90.2 Attention-deficit hyperactivity disorder, combined type (principal); F41.1 Generalized anxiety disorder
CPT/HCPCS: 99214

== ENCOUNTER → 2025-04-27 09:36 | Outpatient (BNVA) | payer OTHER, SELFPAY | PROVIDERS: PCP Internal Medicine; Visit Provider Clinical Nurse Specialist Psychiatric/Mental Health | DX: F90.2 Attention-deficit hyperactivity disorder, combined type (principal); F41.1 Generalized anxiety disorder | CPT/HCPCS: 99212 ==

== ENCOUNTER 2025-07-05 08:13 | Outpatient (AMB) | payer OTHER, SELFPAY ==
[2025-07-05 08:17] VITALS: BP 108/70; PULSE 64; O2SAT 97; BMI 24.5
--- NOTE | 2025-07-05 08:17 | MHC.OFFVIS ---
Vital Signs 07/05/25 08:17 Height 5 ft 2 in Weight 134 lb BMI 24.5 BP 108/70 Blood Pressure Location Rt brachial Position Sitting Pulse 64 Pulse Source Pulse Oximeter Pulse Oximetry (%) 97 Oxygen Delivery Method Room Air Intake Visit Reasons: Colonoscopy screening Intake Note: New pt for initial colo screening. No pertinent FMHx. CC: Pt denies any GI sx or concerns at this time. Addictions Counselor Assistant Required: No Accompanied by: Self / Same As Patient Allergies metronidazole Adverse Reaction (Unknown, Verified 07/05/25 08:17) GI disturbance maple trees Allergy (Unknown, Uncoded 07/05/25 08:17) Unknown HPI HPI Colonoscopy screening: Details: 50 year old? female with past medical history of ADHD, hypercholesteremia, and anxiety is here today for pre colonoscopy screening.? Patient was sent to us by her PCP.? This is her first colonoscopy screening.? Patient denies any gastrointestinal symptoms in the past or at present.? Denies any personal or family history of gastrointestinal disease, colon polyps, or CRC.? Denies history of difficulty with sedation or anesthesia in the past.? Negative for history of sleep apnea.? Denies any history of cardiac, renal, pulmonary, or hepatic disease.?? No history of infectious? diseases like hepatitis A, B, C, HIV or tuberculosis.? Patient is not on any anticoagulation PFSH Medical History Pure hypercholesterolemia, unspecified FH: breast cancer in first degree relative COVID-19 vaccine administered Migraine with aura PTSD (post-traumatic stress disorder) Ectopic Chest pain Surgical History H/O unilateral salpingectomy History of loop electrical excision procedure (LEEP) History of tonsillectomy Family History Father No problems noted. Mother No problems noted. Sister Breast cancer, Onset Age: 38 Social History Housing: House Alcohol intake: current Alcohol intake frequency: holidays/special occasions only Patient Tobacco Use Status: Former Tobacco user Tobacco use type: Cigarette e-Cigarette/Vaping Use: Never Used Second Hand Smoke Exposure: Yes service: No Current occupational status: employed Current occupation: Medical billing Sexual orientation: Straight/Heterosexual Gender identity: Female Cognitive needs: No Hearing needs: No Vision needs: Yes (glasses) Female Reproductive History Menstrual Age of Menarche: 15 Review of Systems Const Denies weight gain and Denies weight loss ENT Reports no additional complaints, Denies dysphagia and Denies odynophagia Card Reports no additional complaints Resp Reports no additional complaints GI Denies abdominal pain, Denies belching, Denies melena, Denies bloating, Denies change in bowel habits, Denies dysphagia, Denies excessive flatus, Denies dyspepsia, Denies heartburn, Denies diarrhea, Denies loose stools, Denies nausea, Denies odynophagia and Denies vomiting Musc Reports no additional complaints Neuro Reports no additional complaints Psych Reports no additional complaints Endo Reports no additional complaints Physical Exam Vital Signs: Last Vital Signs Pulse 64 07/05/25 08:17 BP 108/70 07/05/25 08:17 Pulse Ox 97 07/05/25 08:17 Oxygen Delivery Method Room Air 07/05/25 08:17 BMI result Body Mass Index 24.5 Const General: healthy appearing, no acute distress and well developed Nutritional Appearance: well nourished Orientation/consciousness: patient oriented x3 Resp Effort & Inspection: normal respiratory effort, able to speak in complete sentences, no tracheal deviation and symmetric chest movement Auscultation: clear to auscultation bilaterally Cardio Rate: regular rate GI Inspection: Yes normal to inspection and No distended Palpation (GI): Soft to palpation, not firm, nontender and No hepatosplenomegaly present Auscultation: normal bowel sounds General: Yes no CVA tenderness Back/Spine/Pelvis Back: no CVA tenderness Skin General skin exam: elasticity normal, turgor normal and dry skin Neuro General: patient oriented x3 Psych Appearance: grossly normal Mental Status: mental status grossly normal Assessment & Plan Assessment & Plan (1) Screen for colon cancer: Code(s): Z12.11 - Encounter for screening for malignant neoplasm of colon Plan Patient denies any GI, cardiac or respiratory symptoms.? Denies any issues with anesthesia in the past.? Denies any history of sleep apnea.? No history infectious diseases in the past or present.? Not on any anticoagulation therapy.? No family or personal history of colon cancer or polyps.? Patient denies melena, hematochezia, unintentional weight loss or ribbon like stools.? Discussed at length the pre-procedure,? prep, diet & medications as well as what to expect prior, during and after the procedure.?? Stressed the importance of good bowel prep.? Recommended the use of Vaseline or Calmoseptine OTC & baby wipes with bowel movements to promote comfort.? ?Patient verbalizes understanding and agrees to plan of care.? She was given the opportunity to ask questions and all questions answered.? We will see her after the procedure.? Orders: Referrals GI Procedure Notification Z12.11 - Encounter for screening for malignant neoplasm of colon Medications: New bisacodyl (Dulcolax (bisacodyl)) take 4 tabs at noon the day before your colonoscopy 20 mg (4 x 5 mg) PO ONCE 4 tabs 0RF constipation 1 day Z12.11 - Encounter for screening for malignant neoplasm of colon polyethylene glycol 3350 (Miralax) As directed by gastroenterology department at [facility] 238 grams PO ONCE 238 grams 0RF Z12.11 - Encounter for screening for malignant neoplasm of colon Coding Level of Care Code New Pt Level 3 (79043) Diagnoses Screen for colon cancer Z12.11 Time Spent (min) 40 Comment 30 minutes spent with patient and additional 10 minutes spent reviewing her records
--- OUTSIDE RECORDS SUMMARY | 2025-07-05 09:13 | XMS_ITS | Clinical Summary ---
Author Organization [facility] Address [address] [place] [phone] Phone Care Team Providers Care Bilingual Call Center Representative Name Role Phone Unavailable Primary Care Provider [...] 19+ 3-dose series) 02/26/1996 Influenza Vaccines (#1) 2025 COVID-19 Vaccine ( - 2023-2 5 season) 2025 MMR Vaccines Completed 07/28/1990 HIB Vaccines [...]
== END 2025-07-05 09:12 | disposition home or self-care (01) ==
LOC: HO.HGI 08:14
PROVIDERS: PCP Internal Medicine; Visit Provider Nurse Practitioner Family
DX: Z01.818 Encounter for other preprocedural examination (principal); Z12.11 Encounter for screening for malignant neoplasm of colon
CPT/HCPCS: 99203

== ENCOUNTER → 2025-07-05 08:13 | Outpatient (BNVA) | payer OTHER, SELFPAY | PROVIDERS: PCP Internal Medicine; Visit Provider Nurse Practitioner Family | DX: Z01.818 Encounter for other preprocedural examination (principal) | CPT/HCPCS: 99202 ==

== ENCOUNTER 2025-09-02 14:51 | Outpatient (AMB) | payer OTHER, SELFPAY ==
--- NOTE | 2025-09-02 15:01 | A.OFFPC_ITS ---
Vital Signs 09/02/25 15:02 Height 5 ft 2 in Weight 137 lb 8 oz BMI 25.1 BP 130/72 Blood Pressure Location Lt brachial Position Sitting Pulse 71 Pulse Source Pulse Oximeter Temp 97.1 F Temp Source Temporal Artery Scan Pulse Oximetry (%) 100 Oxygen Delivery Method Room Air Intake Visit Reasons: asthma, GERD, migraine Intake Note: Patient is here to follow up on Asthma, GERD, Migraine. Small Products I Assembler Required: No Advanced Quality Engineer: Not Required per policy Accompanied by: Self / Same As Patient Allergies metronidazole Adverse Reaction (Unknown, Verified 09/02/25 15:02) GI disturbance maple trees Allergy (Unknown, Uncoded 09/02/25 15:02) Unknown Tobacco use date assessed: 09/02/25 Dental Screening Dental Screen Date: 03/04/25 HPI HPI Comments History of Present Illness Details History of Present Illness - The patient is a 50 year old individua l presenting for follow-up of chronic issues, primarily regarding psychiatric medication management. - The patient was seen by a psychiatrist twice and diagnosed with ADHD. - A trial of one ADHD medication resulte d in improved focus but also caused insomnia and did not improve motivation. - The patient wants to discontinue the a ntidepressant, citalopram, due to apathy and emotional blunting, noting a similar side effect with Paxil in the past. - The patient states citalopram has not resolved the anxiety, as clonazepam is still required. - The patient does not take clonazepam d aily due to a limited prescription of 20 pills per month. - The patient reports a recent issue wit h a clonazepam refill being declined by a covering provider, which led to traveling without anxiety medication and experiencing a panic attack. - The psychiatrist noted low vitamin B12 levels and recommended supplementation. - The patient reports weight gain from 1 05 pounds to 140 pounds. - The patient has had a mammogram and is pending scheduling for a colonoscopy. Social History - Employment: The patient is self-employ ed as a massage therapist and describes the work as low-stress, in contrast to a previous stressful job. Results - Labs: Vitamin B12 level was noted to b e low by the psychiatrist. - Screening: Mammogram has been complete d. - Colonoscopy is pending scheduling. [facility] Medical History Pure hypercholesterolemia, unspecified FH: breast cancer in first degree relative COVID-19 vaccine administered Migraine with aura PTSD (post-traumatic stress disorder) Ectopic Chest pain Surgical History H/O unilateral salpingectomy History of loop electrical excision procedure (LEEP) History of tonsillectomy Family History Father No problems noted. Mother No problems noted. Sister Breast cancer, Onset Age: 38 Social History Housing: House Alcohol intake: current Alcohol intake frequency: holidays/special occasions only Patient Tobacco Use Status: Former Tobacco user Tobacco use type: Cigarette e-Cigarette/Vaping Use: Never Used Second Hand Smoke Exposure: Yes service: No Current occupational status: employed Current occupation: Medical billing Sexual orientation: Straight/Heterosexual Gender identity: Female Cognitive needs: No Hearing needs: No Vision needs: Yes (glasses) Female Reproductive History Menstrual Age of Menarche: 15 Questionnaire Thrive Questionnaire Date Thrive assessed: 03/02/25 I am a: Patient What is your living situation today?: I have a steady place to live Within the past 12 months, did the food you bought not last and you didn't have the money to get more?: Never true Within the past 12 months, did you worry whether your food would run out before you got money to buy more?: Never true Do you have trouble paying for medicines?: No Do you have trouble getting transportation to medical appointments?: No Do you have trouble paying your heating and electricity bill?: No Do you have trouble taking care of your child, family member or friend?: No Do you have trouble with day-to-day activities such as bathing, preparing meals, shopping, managing finances, etc.?: No Are you currently unemployed and looking for a job?: No Are you interested in more education?: No Please select the resources that you would like help with: None Currently or been in a relationship where the following occur: No concerns reported THRIVE Score: 0 PAUL-7 AMB Questionnaire PAUL-7 Date PAUL - 7 assessed: 03/04/25 Source: Developed by Drs. Rene Riggins, Sunshine Whitehead, Matt Estrella and colleagues, with an educational dannielle from [employer]. Review of Systems Narrative Review of Systems - Psychiatric: Reports symptoms of anxiety, depression, and panic attacks. - Reports lack of motivation, apathy, and emotional blunting, which the patient attributes to medication. - Constitutional: Reports weight gain. - Neurological: Reports insomnia as a side effect of a prior medication trial. - Allergic/Immunologic: Reports symptoms consistent with allergic rhinitis, requesting Flonase. Physical exam (Primary Care) Vital Signs: Last Vital Signs Temp 97.1 F 09/02/25 15:02 Pulse 71 09/02/25 15:02 BP 130/72 09/02/25 15:02 Pulse Ox 100 09/02/25 15:02 Oxygen Delivery Method Room Air 09/02/25 15:02 BMI result Body Mass Index 25.1 Tobacco/Smoking Status: Tobacco use Status Tobacco use date assessed 09/02/25 09/02/25 15:09 Patient Tobacco Use Status Former Tobacco user 09/02/25 15:09 Tobacco use type Cigarette 09/02/25 15:09 e-Cigarette/Vaping Use Never Used 09/02/25 15:09 Thrive Assessment: Date of Thrive Assessment Date Thrive assessed 03/02/25 09/02/25 15:09 Currently or been in a relationship where the following occur: No concerns reported Narrative Physical Exam General: Cooperative and healthy appearing Nutritional Appearance: Well nourished Orientation/consciousness: Patient oriented x3 Limitations: No limitations Head: Normal to inspection General: Appearance normal, both eyes and all related structures Neck: Normal visual inspection Chest: Normal palpation of entire chest wall Respiratory: Normal respiratory effort Neurology: Patient oriented x3 Coding Level of Care Code Complex visit Add On G2211 Diagnoses Generalized anxiety disorder F41.1 Assessment & Plan Assessment & Plan (1) Generalized anxiety disorder: Code(s): F41.1 - Generalized anxiety disorder Category: Medical Plan Plan - The patient will taper off citalopram due to side effects of apathy and its perceived ineffectiveness. - The taper schedule is to reduce the dose to 10 mg daily for two weeks, then 10 mg every other day for two weeks before stopping. - A new prescription for clonazepam will be provided, to be taken as needed with a quantity of 20 pills per month, to resolve previous pharmacy issues. - Strongly recommended that the patient schedule an appointment with the psychiatrist to discuss long-term medication management for ADHD, depression, and anxiety. - A prescription for Flonase will be provided for rhinitis symptoms. - The patient will continue with plans to schedule a pending colonoscopy. - The patient declined an influenza vaccination at this visit. - Continue vitamin B12 supplementation as advised by the psychiatrist. Discussion Notes I discussed with the patient the desire to stop taking citalopram. The patient reports side effects including apathy and emotional blunting, and feels the medication has not been effective for anxiety, as clonazepam is still required. Although I am not fully in favor of stopping, I respect the patient's choice and have provided a tapering schedule to safely discontinue the medication: 10 mg daily for two weeks, followed by 10 mg every other day for two weeks. I emphasized the importance of following up with the psychiatrist to discuss the ADHD diagnosis and formulate a comprehensive long-term medication plan. We discussed that once the psychiatrist establishes a plan, I can assist with follow-up management. We will continue clonazepam as needed with 20 pills per month, and I will send a new script under my name to prevent further pharmacy issues. I also provided a prescription for Flonase as requested and reminded the patient to schedule the pending colonoscopy. Patient Instructions - Make an appointment with your psychiatrist to discuss your diagnosis of ADHD and create a long-term medication plan for your mental health. - To stop taking citalopram, start by taking half a tablet (10 mg) every day for 2 weeks. - After that, take half a tablet (10 mg) every other day for another 2 weeks, and then you can stop taking it completely. - Continue to take clonazepam as needed for anxiety. - A new prescription has been sent to your pharmacy. - A prescription for Flonase nasal spray has been sent to your pharmacy to help with your nasal symptoms. - Please remember to schedule your colonoscopy. - Continue taking your vitamin B12 supplement as your psychiatrist recommended. Medications: Changed From fluticasone propionate 50 mcg/actuation 1 intranasal DAILY To fluticasone propionate 50 mcg/actuation 2 sprays intranasal DAILY 16 grams 0RF
[2025-09-02 15:02] VITALS: BP 130/72; PULSE 71; TEMP 36.2; O2SAT 100; BMI 25.1
--- OUTSIDE RECORDS SUMMARY | 2025-09-02 20:21 | XMS_ITS | Clinical Summary ---
Author Organization [facility] Address [address] [place] [id number] Phone Care Team Providers Care Pumper Helper Name Role Phone Unavailable Primary Care Provider [...] 02/26/1996 Influenza Vaccines (#1) 2025 COVID-19 Vaccine (1 - 2024-2 6 season) 2025 MMR Vaccines Completed 07/28/1990 HIB [...]
== END 2025-09-02 15:48 | disposition home or self-care (01) ==
LOC: HO.HMCH 14:52
PROVIDERS: PCP Internal Medicine; Visit Provider Internal Medicine
DX: F41.1 Generalized anxiety disorder (principal)

== ENCOUNTER → 2025-09-02 14:51 | Outpatient (BNVA) | payer OTHER, SELFPAY | PROVIDERS: PCP Internal Medicine; Visit Provider Internal Medicine | DX: F41.1 Generalized anxiety disorder (principal) | CPT/HCPCS: 99212 ==